=== PATIENT | male | born 1935 | race Caucasian/White ===

== ENCOUNTER 2019-07-18 02:14 | Emergency (ER) | payer OTHER, MEDICARE, MEDICAID, SELFPAY ==
[2019-07-18 02:23] VITALS: BP 103/70; PULSE 75; RESP 18; O2SAT 95; BMI 27.1
--- NOTE | 2019-07-18 02:58 | ED_ITS ---
Entered by Lavern Mina, acting as scribe for Aniya Sellers Myah Jul 18, 2019 02:14 HPI - Back Pain/Injury General: Chief Complaint: Back Pain/Injury Stated Complaint: BACK PAIN Time Seen by Provider: 07/18/19 02:59 Source: patient Mode of arrival: EMS Limitations: no limitations History of Present Illness: HPI Narrative: 84 yo m came to the er by [facility] for back pain. Onset was tonight. Pt states that he has pain that goes down into his legs and has pain in his lower back. MD elicited complaint: back pain Pertinent past history: prior back pain Onset (ago): day(s) (tonight) Timing: constant Severity: mild Similar Symptoms Previously: Yes Quality: other (pain) Location: thoracic spine Radiation: left upper leg, right upper leg, left leg below the knee and right leg below the knee Exacerbating factors: none Relieving factors: none Associated symptoms: Reports no associated symptoms Work related injury: No Review of Systems General: Reports: other (negative unless marked) PFSH ED PFSH: Statuses (acute, chronic, etc) shown below reflect problem list status as previously entered and may not be historically accurate Social History Smoking and tobacco status: former smoker Quit status (tobacco): has quit using tobacco Year quit tobacco: 1970 Alcohol intake: former Lives independently: Yes Housing: Apartment Current occupational status: disabled Current gender identity: Male Physical Exam Const: COMMON NORMALS: no apparent distress, oriented x3, no limitations, healthy appearing and well nourished EXAM LIMITATIONS: no altered mental status GENERAL APPEARANCE: cooperative, well kempt and well developed ORIENTATION/CONSCIOUSNESS: Yes awake HENMT: COMMON NORMALS: normocephalic, head/scalp atraumatic, hearing grossly normal bilaterally, external ears normal, EAC's normal, external nose normal and moist oral mucous membranes HEAD & SCALP: normal to inspection, normocephalic and atraumatic FACE & SINUS: normal facial exam and face symmetric NOSE: external nose normal and nares normal EXTERNAL EAR: Yes external ears normal EXTERNAL AUDITORY CANAL: EAC's normal MOUTH: oral and palatal mucosa normal and tongue normal Eye: COMMON NORMALS: PERRL, EOMs intact bilaterally, conjunctivae normal and no scleral icterus GENERAL EYE: normal appearance of both eyes and normal light reflex CONJUNCTIVA: Yes conjunctivae normal SCLERA: sclerae normal CORNEA: Yes corneas normal PUPIL: Yes PERRL DIRECT OPHTHALMOSCOPY: Yes normal light reflex Neck/C-Spine: COMMON NORMALS: full ROM, no lymphadenopathy, supple, no meningeal signs and no JVD GENERAL: Yes normal visual inspection and Yes trachea midline CERVICAL SPINE: Yes cervical ROM normal Chest: COMMONS NORMALS: inspection of chest normal and palpation of chest normal Resp: COMMON NORMALS: normal respiratory effort, no retractions, no use of accessory muscles and clear to auscultation bilaterally EFFORT & INSPECTION: Yes able to speak in complete sentences AUSCULTATION: clear to auscultation bilaterally Cardio: COMMON NORMALS: no JVD, regular rate, regular rhythm, S1 normal heart sound, S2 normal heart sound, no gallops, no clicks, no murmurs and no rub JUGULAR VENOUS DISTENTION: no JVD RATE: regular rate RHYTHM: regular rhythm HEART SOUNDS: S1 normal and S2 normal GI: COMMON NORMALS: soft to palpation, non-tender, no hepatosplenomegaly and no masses INSPECTION: Yes normal to inspection PALPATION: Yes soft and Yes no hepatosplenomegaly : COMMON NORMALS: Yes no CVA tenderness BLADDER/KIDNEY EXAM: Yes no CVA tenderness Back/Pelvis: COMMON NORMALS: no CVA tenderness, thoracic and lumbar spine normal to inspection, no thoracic nor lumbar tenderness and thoraco-lumbar ROM normal Extremity: COMMON NORMALS: normal to inspection, full ROM, normal capillary refill, no joint enlargement, no clubbing, cyanosis or edema and no calf tenderness Neuro: COMMON NORMALS: oriented x3, CN's II-XII intact bilaterally, moves all extremities, no focal motor deficits and no sensory deficits noted MENINGEAL SIGNS: Yes no meningeal signs Psych: COMMON NORMALS: mental status grossly normal, thought process normal, cooperative, affect normal, speech normal and activity/motor behavior normal APPEARANCE: Yes well kempt SPEECH: Yes normal speech THOUGHT PROCESS: normal thought process Skin: COMMON NORMALS: no rashes or lesions noted, skin turgor normal, no jaundice, no petechiae and no mottling GENERAL SKIN EXAM: no rashes or lesions noted and turgor normal Course Vital Signs: Vital signs: Vital Signs Temperature 98.4 F 07/18/19 03:09 Pulse Rate 65 07/18/19 05:01 Respiratory Rate 20 H 07/18/19 05:01 Blood Pressure 134/99 07/18/19 05:01 Pulse Oximetry 91 07/18/19 05:01 MDM - Back Pain/Injury MDM Narrative: Medical decision making narrative: Patient had complaints of flank pain and the concern of kidney stone as well as AAA was present but there is no acute findings. His back shows severe degenerative disease but no acute findings. The patient is very angry he is not getting more pain medication. I believe his back exam and description of pain justify the pain medication given but I have informed him that all future pain medication must come from his regular doctor. He states that his regular doctor will give him this medication long-term so I have suggested he find a specialist or a pain center that will help him with his symptoms. Patient states he understands this and will follow- up as directed return if needed. Lab Data: Labs: Lab Results 07/18/19 07/18/19 07/18/19 Range/Units 03:18 03:18 03:27 WBC 6.9 (4.0-10.0) 10^3/ uL RBC 4.63 (4.1-5.3) 10^6/u L Hgb 13.9 (11.7-16.6) g/dL Hct 42.4 (42.0-52.0) % MCV 91.6 (80-94) fL MCH 30.0 (28.0-34.0) pg MCHC 32.8 (30.0-36.0) g/dL RDW 12.4 (12.1-15.1) % Plt Count 186 (130-400) 10^3/c mm MPV 11.5 H (7.4-10.4) fL Neut % (Auto) 40.7 % Lymph % (Auto) 36.5 % Boyle % (Auto) 12.8 % Eos % (Auto) 8.7 % Baso % (Auto) 1.2 % Neut # (Auto) 2.8 (1.8-7.7) 10^3/u L Lymph # (Auto) 2.5 (0.8-4.8) 10^3/u L Boyle # (Auto) 0.9 (0.2-0.9) 10^3/u L Eos # (Auto) 0.6 (0.0-0.8) 10^3/u L Baso # (Auto) 0.1 (0.0-0.1) 10^3/u L Nucleated RBC % (a uto) 0 % Nucleated RBCs # 0.0 /100WBC Sodium 140 (136-145) mmol/L Potassium 3.5 (3.5-5.1) mmol/L Chloride 99 (98-107) mmol/L Carbon Dioxide 30 H (22-29) mmol/L Anion Gap 14.5 (5-19) BUN 8 (8-23) mg/dL Creatinine 0.7 (0.7-1.2) mg/dL Glucose 123 H (74-106) mg/dL Calcium 9.5 (8.5-10.5) mg/dL Total Bilirubin 0.6 (0.15-1.2) mg/dL AST 23 (0-40) U/L ALT 20 (0-41) U/L Alkaline Phosphata se 59 (40-130) IU/L Total Protein 7.3 (6.6-8.7) g/dL Albumin 3.8 (3.5-5.2) g/dL Globulin 3.5 (1.3-4.6) g/dL Urine Color Dark yellow (Yellow) Urine Appearance Clear (CLEAR) Urine pH 5 (5-7) Ur Specific Gravit y 1.030 (1.005-1.030) Urine Protein Neg (Negative) Urine Glucose (UA) Norm (Normal) Urine Ketones 1+ H (Negative) Urine Occult Blood Neg (Negative) Urine Nitrate Negative (Negative) Urine Bilirubin Neg (NEGATIVE) Urine Urobilinogen 1 H (Negative) mg/dL Ur Leukocyte Barbara ase Negative (Negative) Urine RBC None (0-2) /hpf Urine WBC None (0-5) /hpf Ur Squamous Epith Cells 10-15 H (0-5) Urine Bacteria Trace (NONE) Urine Mucus 3+ Imaging Data^: Other CT: Radiologist's impression: [address] [address] [address] Scan Report Signed Patient: Rafal Rockwell #: [id number] : 5Acct#:[id number] Age/Sex: 84 / MADM Date: 07/18/19 Loc: ERRoom/Bed: Attending Dr: Ordering Provider/Ordering MD: Aniya Sellers DO Date of Service: 07/18/19 Procedure(s): CT lumbar spine wo con* [id number] Accession Number(s): [id number] Report Number: [id number] PROCEDURE INFORMATION: Exam: CT Lumbar Spine Without Contrast Exam date and time: 07/18/2019 3:10 AM Age: 84 years old Clinical indication: Low back pain TECHNIQUE: Imaging protocol: Computed tomography images of the lumbar spine without contrast. Total DLP: 2538.343 mGy-cm Radiation optimization: All CT scans at this facility use at least one of these dose optimization techniques: automated exposure control; mA and/or kV adjustment per patient size (includes targeted exams where dose is matched to clinical indication); or iterative reconstruction. COMPARISON: MRI Lumbar Spine w/o [id number] 04/25/2019 4:51 PM FINDINGS: Vertebrae: Alignment is normal. Vertebral body height is maintained. There is no acute fracture. Severe bilateral lower lumbar facet spondylosis. Discs/Spinal canal/Neural foramina: There is moderate multilevel lumbar degenerative disc disease. Moderate multifactorial spinal stenosis at L2-L3 and L3-L4. Other bones/joints: Visible portions of the ribs are intact. Intraperitoneal space: The visible portion of the pelvis and sacrum is intact. Vasculature: There is moderate aortic atherosclerotic disease. There is no aortic aneurysm. Soft tissues: Paraspinal soft tissues are unremarkable. CT/CT lumbar spine wo con* [id number] IMPRESSION: 1. No acute findings. 2. Moderate to severe lower lumbar degenerative disease with multifactorial spinal stenosis at L2-L3 and L3-L4. Radiation Dose CTDIVOL = (mGy): DLP = 2538.343 (mGy-cm) Dictated By:Domingo Rodrigues MD Signed By:Domingo Rodrigues MDSigned Date/Time:07/18/19437 DD/ 6 CT Abd/Pel: Radiologist's impression: [address] [address] [address] Scan Report Signed Patient: Rafal Rockwell #: [id number] : [id number]#:[id number] Age/Sex: 84 / MADM Date: 07/18/19 Loc: ERRoom/Bed: Attending Dr: Ordering Provider/Ordering MD: Aniya Sellers DO Date of Service: 07/18/19 Procedure(s): CT kidney stone [id number] Accession Number(s): [id number] Report Number: [id number] PROCEDURE INFORMATION: Exam: CT Abdomen And Pelvis Without Contrast Exam date and time: 07/18/2019 3:10 AM Age: 84 years old Clinical indication: Abdominal pain; Flank; Other: Bilat; Additional info: Flank/abdominal pain TECHNIQUE: Imaging protocol: Computed tomography of the abdomen and pelvis without contrast. Total DLP: 1826.82 mGy-cm Radiation optimization: All CT scans at this facility use at least one of these dose optimization techniques: automated exposure control; mA and/or kV adjustment per patient size (includes targeted exams where dose is matched to clinical indication); or iterative reconstruction. COMPARISON: CT abdomen pelvis w con* [id number] 01/14/2016 4:56 PM FINDINGS: Lungs: There is a calcified granuloma in the right lower lobe. There is mild bronchial wall thickening and mucus plugging in the right lower lobe. Mediastinum: There is a moderate size sliding-type hiatal hernia. Liver: The liver is normal. Gallbladder and bile ducts: The gallbladder is normal. There is no biliary dilation. Pancreas: The pancreas is unremarkable. Spleen: The spleen is unremarkable. Adrenals: The adrenal glands are unremarkable. Kidneys and ureters: The right kidney and ureter are unremarkable. 7.9 x 6.7 cm left renal cyst with a thin calcified septation. Bosniak class 2. No follow-up imaging is necessary. There is no hydronephrosis or stones on the left. Stomach and bowel: The stomach is unremarkable. The small bowel is nondilated. There is no sign of inflammation. There is mild distal descending and sigmoid colonic diverticulosis without evidence of diverticulitis. Appendix: The appendix is normal. Intraperitoneal space: There is no free air or significant intraperitoneal free fluid. Vasculature: There is mild aortic atherosclerotic disease. There is no aortic aneurysm. Lymph nodes: There is no lymphadenopathy in the retroperitoneum, mesentery, pelvis or inguinal regions. Bladder: The urinary bladder is unremarkable. Reproductive: The prostate and seminal vesicles are unremarkable. Bones/joints: Mild lumbar scoliosis. Moderate degenerative disease. Pelvis and hips are unremarkable. Soft tissues: There is a small fat containing ventral hernia. CT/CT kidney stone [id number] IMPRESSION: 1. No acute findings. 2. Incidental findings above. Radiation Dose CTDIVOL = (mGy): DLP = 1826.82 (mGy-cm) Dictated By:Domingo Rodrigues MD Signed By:Domingo Rodrigues MDSigned Date/Time:07/18/19434 DD/ 3 Discharge Plan Discharge Patient Disposition: Home, Self-Care Clinical Impression: Strain of lumbar region Qualifiers: Encounter type: initial encounter Qualified Code(s): S39.012A - Strain of muscle, fascia and tendon of lower back, initial encounter Condition: Stable Prescriptions: [place] 5-325 mg tablet 1 tab PO Q6H PRN (Reason: pain) 5 Days Qty: 20 RF: 0 No Action lovastatin 40 mg tablet 40 mg PO QDAY RF: 0 metoprolol tartrate 100 mg tablet 100 mg PO QDAY RF: 0 tamsulosin 0.4 mg capsule 0.4 mg PO QDAY RF: 0 nitroglycerin [Nitrostat] 0.4 mg tablet, sublingual 0.4 mg SUBLINGUAL Q5M PRNRF: 0 docusate sodium [Colace] 100 mg capsule 100 mg PO QDAY RF: 0 cetirizine 5 mg tablet 5 mg PO QDAY RF: 0 donepezil [Aricept] 5 mg tablet 5 mg PO QDAY RF: 0 Discharge Orders: Discharge Order (Routine); Ordered 07/18/19 Ordered By: Aniya Sellers Referrals: Yobany Santana MD [Physician] - 4-7 days Loretta Bingham DO [Physician] - 4-7 days Chelsea Lindsey FNP [Family Provider] - Discharge Diet: Usual diet Discharge Activity: Increase activity as tolerated Patient Instructions: Back Pain (ED) Activity Restrictions/Additional Instructions: Please return to the ER immediately for any of the signs or symptoms listed on your discharge instruction sheets, worsening/changing of your symptoms, you are not getting better as quickly as expected, or for ANY other cause or concerns. Be certain to follow-up with your doctor or establish with a new doctor as all future pain medication must come from them. Discharge Date/Time: 07/18/19 05:03 Coding Level of Care Code ED Awning Spreader for Chg Fwd Exam Problem Focused The documentation recorded by the Leopoldo mullins Stephanie Lyn, accurately reflects the service I personally performed and the decisions made by me, Aniya Sellers Jul 18, 2019 02:14
--- NOTE | 2019-07-18 03:05 | PC.NURSE ---
Introduced self to patient and initiated vital signs. Pt is A&O x 4 and agreeable. Pt states that the reason for the ER visit today is due to lower back pain which is radiating down both legs. Reassured patient of needs and will continue to monitor. Awaiting provider at bedside.
--- NOTE | 2019-07-18 03:08 | CTR_ITS ---
PROCEDURE INFORMATION: Exam: CT Abdomen And Pelvis Without Contrast Exam date and time: 07/18/2019 3:10 AM Age: 84 years old Clinical indication: Abdominal pain; Flank; Other: Bilat; Additional info: Flank/abdominal pain TECHNIQUE: Imaging protocol: Computed tomography of the abdomen and pelvis without contrast. Total DLP: 1826.82 mGy-cm Radiation optimization: All CT scans at this facility use at least one of these dose optimization techniques: automated exposure control; mA and/or kV adjustment per patient size (includes targeted exams where dose is matched to clinical indication); or iterative reconstruction. COMPARISON: CT abdomen pelvis w con* [id number] 01/14/2016 4:56 PM FINDINGS: Lungs: There is a calcified granuloma in the right lower lobe. There is mild bronchial wall thickening and mucus plugging in the right lower lobe. Mediastinum: There is a moderate size sliding-type hiatal hernia. Liver: The liver is normal. Gallbladder and bile ducts: The gallbladder is normal. There is no biliary dilation. Pancreas: The pancreas is unremarkable. Spleen: The spleen is unremarkable. Adrenals: The adrenal glands are unremarkable. Kidneys and ureters: The right kidney and ureter are unremarkable. 7.9 x 6.7 cm left renal cyst with a thin calcified septation. Bosniak class 2. No follow-up imaging is necessary. There is no hydronephrosis or stones on the left. Stomach and bowel: The stomach is unremarkable. The small bowel is nondilated. There is no sign of inflammation. There is mild distal descending and sigmoid colonic diverticulosis without evidence of diverticulitis. Appendix: The appendix is normal. Intraperitoneal space: There is no free air or significant intraperitoneal free fluid. Vasculature: There is mild aortic atherosclerotic disease. There is no aortic aneurysm. Lymph nodes: There is no lymphadenopathy in the retroperitoneum, mesentery, pelvis or inguinal regions. Bladder: The urinary bladder is unremarkable. Reproductive: The prostate and seminal vesicles are unremarkable. Bones/joints: Mild lumbar scoliosis. Moderate degenerative disease. Pelvis and hips are unremarkable. Soft tissues: There is a small fat containing ventral hernia. CT/CT kidney stone [id number] IMPRESSION: 1. No acute findings. 2. Incidental findings above. Radiation Dose CTDIVOL = (mGy): DLP = 1826.82 (mGy-cm)
--- NOTE | 2019-07-18 03:08 | CTR_ITS ---
PROCEDURE INFORMATION: Exam: CT Lumbar Spine Without Contrast Exam date and time: 07/18/2019 3:10 AM Age: 84 years old Clinical indication: Low back pain TECHNIQUE: Imaging protocol: Computed tomography images of the lumbar spine without contrast. Total DLP: 2538.343 mGy-cm Radiation optimization: All CT scans at this facility use at least one of these dose optimization techniques: automated exposure control; mA and/or kV adjustment per patient size (includes targeted exams where dose is matched to clinical indication); or iterative reconstruction. COMPARISON: MRI Lumbar Spine w/o [id number] 04/25/2019 4:51 PM FINDINGS: Vertebrae: Alignment is normal. Vertebral body height is maintained. There is no acute fracture. Severe bilateral lower lumbar facet spondylosis. Discs/Spinal canal/Neural foramina: There is moderate multilevel lumbar degenerative disc disease. Moderate multifactorial spinal stenosis at L2-L3 and L3-L4. Other bones/joints: Visible portions of the ribs are intact. Intraperitoneal space: The visible portion of the pelvis and sacrum is intact. Vasculature: There is moderate aortic atherosclerotic disease. There is no aortic aneurysm. Soft tissues: Paraspinal soft tissues are unremarkable. CT/CT lumbar spine wo con* [id number] IMPRESSION: 1. No acute findings. 2. Moderate to severe lower lumbar degenerative disease with multifactorial spinal stenosis at L2-L3 and L3-L4. Radiation Dose CTDIVOL = (mGy): DLP = 2538.343 (mGy-cm)
[2019-07-18 03:09] VITALS: BP 135/89; PULSE 78; RESP 18; TEMP 36.9; O2SAT 94
[2019-07-18 03:24] LABS: Basophils # 0.1 10^3/uL (0.0-0.1); Basophils % 1.2 %; Eosinophils # 0.6 10^3/uL (0.0-0.8); Eosinophils % 8.7 %; Hematocrit 42.4 % (42.0-52.0); Hemoglobin 13.9 g/dL (11.7-16.6); Lymphocytes # 2.5 10^3/uL (0.8-4.8); Lymphocytes % 36.5 %; Mean Corpuscular HGB Conc 32.8 g/dL (30.0-36.0); Mean Corpuscular Volume 91.6 fL (80-94); Mean Platelet Volume 11.5 fL (7.4-10.4); Monocytes # 0.9 10^3/uL (0.2-0.9); Monocytes % 12.8 %; Neutrophils # 2.8 10^3/uL (1.8-7.7); Neutrophils % 40.7 %; Nucleated Red Blood Cells % 0 %; Platelet Count 186 10^3/cmm (130-400); Red Blood Count 4.63 10^6/uL (4.1-5.3); Red Cell Distribution Width 12.4 % (12.1-15.1); White Blood Count 6.9 10^3/uL (4.0-10.0)
[2019-07-18 03:46] LABS: Alanine Aminotransferase 20 U/L (0-41); Albumin Level 3.8 g/dL (3.5-5.2); Alkaline Phosphatase 59 IU/L (40-130); Anion Gap 14.5 (5-19); Aspartate Amino Transferase 23 U/L (0-40); Blood Urea Nitrogen 8 mg/dL (8-23); Calcium 9.5 mg/dL (8.5-10.5); Carbon Dioxide 30 mmol/L (22-29); Chloride 99 mmol/L (98-107); Creatinine Clr Calc Pharmacy 80.5459; Globulin 3.5 g/dL (1.3-4.6); Glucose 123 mg/dL (74-106); Potassium 3.5 mmol/L (3.5-5.1); Sodium 140 mmol/L (136-145); Total Bilirubin 0.6 mg/dL (0.15-1.2); Total Protein 7.3 g/dL (6.6-8.7)
[2019-07-18 03:59] LABS: Bilirubin Urine Neg (NEGATIVE); Blood Urine Neg (Negative); Glucose Urine UA Norm (Normal); Ketones Urine 1+ (Negative); Leukocyte Esterase Urine Negative (Negative); Nitrate Urine Negative (Negative); Protein Urine Neg (Negative); Urine Appearance Clear (CLEAR); Urine Color Dark Yellow (Yellow); Urobilinogen Urine 1 mg/dL (Negative); pH Urine 5 (5-7)
[2019-07-18] MEDS: HYDROcodone-acetaminophen 5-325 mg Tablet 1 TAB PO (03:59)
[2019-07-18 04:01] LABS: Add Urine Culture? No; Bacteria Urine TRACE; Mucus Urine 3+
[2019-07-18 05:01] VITALS: BP 134/99; PULSE 65; RESP 20; O2SAT 91
--- NOTE | 2019-07-21 13:57 | DCPLANNER ---
cocktail lounge manager had message to schedule a follow up appointment for patient with Dr. Santana. cocktail lounge manager called [facility], spoke with Roxanna, gave clinic patients information. cocktail lounge manager was told that patients information would be printed and given to Liam for review. Clinic will call patient with appointment information. cocktail lounge manager will call for appointment information.
== END 2019-07-18 05:03 | disposition home or self-care (01) ==
PROVIDERS: Emergency Provider Emergency Medicine; Family Provider Nurse Practitioner Family
DX: S39.012A Strain of muscle, fascia and tendon of lower back, initial encounter (principal); Z87.891 Personal history of nicotine dependence; X58.XXXA Exposure to other specified factors, initial encounter
CPT/HCPCS: 36415; 72131; 74176; 80053; 81001; 85025; 99281; 99283

== ENCOUNTER → 2019-11-03 16:30 | Outpatient (BNVA) | payer MEDICARE, MEDICAID, SELFPAY | PROVIDERS: Family Provider Nurse Practitioner Family; Visit Provider Family Medicine | DX: F03.90 Unspecified dementia, unspecified severity, without behavioral disturbance, psychotic disturbance, mood disturbance, and anxiety (principal); E78.5 Hyperlipidemia, unspecified; I10 Essential (primary) hypertension; N40.0 Benign prostatic hyperplasia without lower urinary tract symptoms; J30.9 Allergic rhinitis, unspecified; M48.061 Spinal stenosis, lumbar region without neurogenic claudication; Z12.5 Encounter for screening for malignant neoplasm of prostate | CPT/HCPCS: 80053; 80061; 84443; 85025; G0103 ==

== ENCOUNTER → 2020-09-28 15:37 | Outpatient (BNVA) | payer MEDICARE, MEDICAID, SELFPAY | PROVIDERS: Family Provider Nurse Practitioner Family; Visit Provider Family Medicine | DX: F03.90 Unspecified dementia, unspecified severity, without behavioral disturbance, psychotic disturbance, mood disturbance, and anxiety (principal); E78.5 Hyperlipidemia, unspecified; N40.0 Benign prostatic hyperplasia without lower urinary tract symptoms; I10 Essential (primary) hypertension; K21.9 Gastro-esophageal reflux disease without esophagitis; E78.2 Mixed hyperlipidemia; Z68.28 Body mass index [BMI] 28.0-28.9, adult; F17.211 Nicotine dependence, cigarettes, in remission | CPT/HCPCS: 80053; 80061; 84443; 85025 ==

== ENCOUNTER → 2021-02-15 11:39 | Outpatient (BNVA) | payer MEDICARE, MEDICAID, SELFPAY | PROVIDERS: Family Provider Nurse Practitioner Family; Visit Provider Family Medicine | DX: F03.90 Unspecified dementia, unspecified severity, without behavioral disturbance, psychotic disturbance, mood disturbance, and anxiety (principal); I10 Essential (primary) hypertension; N40.0 Benign prostatic hyperplasia without lower urinary tract symptoms; E78.2 Mixed hyperlipidemia; E78.5 Hyperlipidemia, unspecified; J44.9 Chronic obstructive pulmonary disease, unspecified; M25.512 Pain in left shoulder | CPT/HCPCS: 80053; 80061; 84443; 85025; G0103 ==

== ENCOUNTER → 2021-11-16 13:12 | Outpatient (BNVA) | payer MEDICARE, MEDICAID, SELFPAY | PROVIDERS: Family Provider Nurse Practitioner Family; PCP Family Medicine; Visit Provider Family Medicine | DX: E78.5 Hyperlipidemia, unspecified (principal); I10 Essential (primary) hypertension; R73.09 Other abnormal glucose; Z12.5 Encounter for screening for malignant neoplasm of prostate; E78.2 Mixed hyperlipidemia; F03.90 Unspecified dementia, unspecified severity, without behavioral disturbance, psychotic disturbance, mood disturbance, and anxiety; K21.9 Gastro-esophageal reflux disease without esophagitis; F42.4 Excoriation (skin-picking) disorder | CPT/HCPCS: 80053; 80061; 83036; 85025; G0103 ==

== ENCOUNTER → 2022-07-27 17:01 | Outpatient (BNVA) | payer MEDICARE, MEDICAID, SELFPAY | PROVIDERS: Family Provider Nurse Practitioner Family; PCP Family Medicine; Visit Provider Family Medicine | DX: E11.9 Type 2 diabetes mellitus without complications (principal); E78.2 Mixed hyperlipidemia; F03.90 Unspecified dementia, unspecified severity, without behavioral disturbance, psychotic disturbance, mood disturbance, and anxiety; I10 Essential (primary) hypertension; K21.9 Gastro-esophageal reflux disease without esophagitis; N40.0 Benign prostatic hyperplasia without lower urinary tract symptoms; E78.5 Hyperlipidemia, unspecified; Z12.5 Encounter for screening for malignant neoplasm of prostate | CPT/HCPCS: 80053; 80061; 83036; 84443; 85025; G0103 ==

== ENCOUNTER → 2022-12-07 10:15 | Outpatient (BNVA) | payer MEDICARE, MEDICAID, SELFPAY | PROVIDERS: Family Provider Nurse Practitioner Family; PCP Family Medicine; Visit Provider Family Medicine | DX: F03.90 Unspecified dementia, unspecified severity, without behavioral disturbance, psychotic disturbance, mood disturbance, and anxiety (principal); E78.5 Hyperlipidemia, unspecified; I10 Essential (primary) hypertension; E11.9 Type 2 diabetes mellitus without complications; K21.9 Gastro-esophageal reflux disease without esophagitis | CPT/HCPCS: 80053; 80061; 83036; 84443 ==

== ENCOUNTER → 2023-01-08 12:21 | Outpatient (BNVA) | payer MEDICARE, MEDICAID, SELFPAY | PROVIDERS: Family Provider Nurse Practitioner Family; PCP Family Medicine; Visit Provider Family Medicine | DX: R82.998 Other abnormal findings in urine (principal) | CPT/HCPCS: 81000 ==

== ENCOUNTER → 2023-03-21 15:20 | Outpatient (BNVA) | payer MEDICARE, MEDICAID, SELFPAY | PROVIDERS: Family Provider Nurse Practitioner Family; PCP Family Medicine; Visit Provider Family Medicine | DX: E11.9 Type 2 diabetes mellitus without complications (principal); E78.5 Hyperlipidemia, unspecified; F03.90 Unspecified dementia, unspecified severity, without behavioral disturbance, psychotic disturbance, mood disturbance, and anxiety; G89.29 Other chronic pain; M54.9 Dorsalgia, unspecified; M54.50 Low back pain, unspecified; I10 Essential (primary) hypertension; N40.0 Benign prostatic hyperplasia without lower urinary tract symptoms | CPT/HCPCS: 80053; 80061; 83036; 84443; 85025 ==

== ENCOUNTER 2023-06-09 09:43 | Emergency (ER) | payer MEDICARE, MEDICAID, SELFPAY ==
[2023-06-09 09:43] VITALS: BP 172/89; PULSE 80; RESP 15; TEMP 36.7; O2SAT 94; BMI 21.7
--- NOTE | 2023-06-09 10:02 | XRR_ITS ---
PROCEDURE INFORMATION: Exam: XR Chest Exam date and time: 06/09/2023 10:10 AM Age: 88 years old Clinical indication: Dyspnea TECHNIQUE: Imaging protocol: Radiologic exam of the chest. Views: 1 view. COMPARISON: CR XR chest 1V [id number] 04/14/2017 11:04 PM FINDINGS: Lungs: The left upper lobe and right lung are clear No consolidation. Pleural spaces: Eventration left hemidiaphragm No pleural effusion. No pneumothorax. Heart/Mediastinum: Unremarkable. No cardiomegaly. Bones/joints: Unremarkable. XR/XR chest 1V portable [id number] IMPRESSION: 1. Eventration left hemidiaphragm 2. Otherwise No acute findings.
--- NOTE | 2023-06-09 10:02 | XRR_ITS ---
PROCEDURE INFORMATION: Exam: XR Abdomen Exam date and time: 06/09/2023 10:14 AM Age: 88 years old Clinical indication: Constipation TECHNIQUE: Imaging protocol: Radiologic exam of the abdomen. Views: Frontal supine view of the abdomen. 1 View. COMPARISON: CT kidney stone [id number] 07/18/2019 3:48 AM FINDINGS: Gastrointestinal tract: There is a moderate colonic fecal stasis in the hepatic flexure and proximal transverse colon. Scattered fecal stasis seen throughout the remainder of the colon. There is no bowel obstruction or fecal impaction present. No bowel dilation. The bowel gas pattern is otherwise nonspecific. Bones/joints: Severe osteopenia and osteoarthritis. There is lumbar spine levoscoliosis. XR/XR abdomen 1V* [id number] IMPRESSION: 1. Negative for acute GI abnormality. 2. Moderate colonic fecal stasis in the hepatic flexure and proximal transverse colon 3. Negative for bowel obstruction or fecal impaction. 4. Lumbar spine osteopenia, osteoarthritis, and levoscoliosis .
[2023-06-09 10:05] VITALS: PULSE 75; O2SAT 98
--- NOTE | 2023-06-09 10:05 | ED_ITS ---
HPI - Abdominal Pain 2 General: Chief Complaint: Abdominal Pain Stated Complaint: ABD PAIN Time Seen by Provider: 06/09/23 09:48 History of Present Illness: Patient presents to the ER by EMS with complaints of shortness of breath. Patient normally wears 2 L of oxygen at night. Upon arrival patient's oxygen saturation was about 95% on room air but he still complained of being short of breath. Patient was placed on 2 L and his sats jumped up to 9798%. Patient says he has been having bowel problems and been constipated for the last several days but has been taking home medicine and which has helped a little bit in that area. Otherwise patient has no complaints at this time. Review of Systems 2 General: Reports: 10 or more systems reviewed and unremarkable except in HPI and below PFSH ED 2 PFSH: Medical History (Updated 06/09/23 @ 11:25 by August Chang DO) Lumbar stenosis without neurogenic claudication Intervertebral disc disorder with radiculopathy of lumbosacral region BPH (benign prostatic hyperplasia) Dyslipidemia GERD (gastroesophageal reflux disease) Depression with anxiety COPD (chronic obstructive pulmonary disease) Alcoholism Decreased hearing of both ears ASHD (arteriosclerotic heart disease) Hypertension Surgical History History of cholecystectomy (~2012) Family History Other Cancer Social History Smoking and tobacco/nicotine status: former use of tobacco/nicotine Quit status (tobacco/nicotine): has quit using Year quit tobacco: 1970 Alcohol intake: former Substance/Drug Use: never Lives independently: Yes Housing: Apartment Current occupational status: disabled Do you think of yourself as: Straight/Heterosexual Current gender identity: Male Physical Exam 2 Const: COMMON NORMALS: no acute distress, average body habitus, patient oriented x3, no limitations, healthy appearing, alert and well nourished HENMT: COMMON NORMALS: normocephalic, atraumatic, hearing grossly normal bilaterally, external ears normal, Normal external nose present, moist oral mucous membranes and oropharynx normal HEAD & SCALP: normocephalic and atraumatic NOSE: Normal external nose present EXTERNAL EAR: Yes external ears normal Neck/C-Spine: COMMON NORMALS: no JVD Resp: COMMON NORMALS: normal respiratory effort, No retractions, No use of accessory muscles and clear to auscultation bilaterally AUSCULTATION: clear to auscultation bilaterally Cardio: COMMON NORMALS: no JVD, regular rate, regular rhythm, S1 normal heart sound present, S2 normal heart sound present, No gallops present (Cardio), No clicks present (Cardio), No murmurs present (Cardio) and No rub (Cardio) R ATE: regular rate RHYTHM: regular rhythm HEART SOUNDS: S1 normal heart sound present and S2 normal heart sound present GI: COMMON NORMALS: Normal to inspection, nondistended, normoactive bowel sounds present, Soft to palpation, non-tender, No hepatosplenomegaly present and no masses PALPATION: Yes Soft to palpation and Yes No hepatosplenomegaly present Neuro: COMMON NORMALS: patient oriented x3 SENSORIUM/ORIENTATION: Yes alert Course 2 Vital Signs: Vital signs: Vital Signs Temperature 98.1 F 06/09/23 09:43 Pulse Rate 75 06/09/23 10:05 Respiratory Rate 15 06/09/23 09:43 Blood Pressure 172/89 06/09/23 09:43 Pulse Oximetry 98 06/09/23 10:05 Oxygen Delivery Me thod Nasal Cannula 06/09/23 10:05 Oxygen Flow Rate 3 06/09/23 10:05 MDM - Abdominal Pain Medical Decision Making She had lab work drawn it was essentially unremarkable as well as abdominal x- ray which was positive for moderate constipation. These results was described to the patient. Patient can wear his home oxygen at 2 L per nasal cannula at all times if patient desires. Patient should continue his bowel prep regimen. Differential Diagnosis Likely constipation; Unlikely abdominal pain, acute appendicitis, calculus of kidney, diverticulitis, endometriosis, gastroenteritis, pancreatitis or small bowel obstruction Medical Records I reviewed the patient's medical records. Lab Data I reviewed the patient's lab results. 06/09/23 10:25 06/09/23 10:25 Labs/Radiology: Radiology Impressions Abdomen X-Ray 06/09/23 10:02 IMPRESSION: 1. Negative for acute GI abnormality. 2. Moderate colonic fecal stasis in the hepatic flexure and proximal transverse colon 3. Negative for bowel obstruction or fecal impaction. 4. Lumbar spine osteopenia, osteoarthritis, and levoscoliosis . Chest X-Ray 06/09/23 10:02 IMPRESSION: 1. Eventration left hemidiaphragm 2. Otherwise No acute findings. Laboratory Results WBC 11.52 10^3/uL (3.29-11.43) H 06/09/23 10:25 RBC 4.01 10^6/uL (3.85-5.65) 06/09/23 10:25 Hgb 11.40 g/dL (11.27-16.99) 06/09/23 10:25 Hct 36.8 % (37-53) L 06/09/23 10:25 MCV 91.8 fl (82-101) 06/09/23 10:25 MCH 28.4 pg (27-33) 06/09/23 10:25 MCHC 31.0 g/dL (30-55) 06/09/23 10:25 RDW 13.5 % (12.1-15.1) 06/09/23 10:25 Plt Count 171 10^3/cmm (157-399) 06/09/23 10:25 MPV 11.5 fL (7.4-10.4) H 06/09/23 10:25 Neut % (Auto) 75.9 % 06/09/23 10:25 Lymph % (Auto) 12.2 % 06/09/23 10:25 [place] % (Auto) 8.3 % 06/09/23 10:25 Eos % (Auto) 2.7 % 06/09/23 10:25 Baso % (Auto) 0.6 % 06/09/23 10:25 Neut # (Auto) 8.74 10^3/uL (1.8-7.7) H 06/09/23 10:25 Lymph # (Auto) 1.4 10^3/uL (0.8-4.8) 06/09/23 10:25 [place] # (Auto) 1.0 10^3/uL (0.2-0.9) H 06/09/23 10:25 Eos # (Auto) 0.3 10^3/uL (0.0-0.8) 06/09/23 10:25 Baso # (Auto) 0.1 10^3/uL (0.0-0.1) 06/09/23 10:25 Nucleated RBC % (auto) 0 % 06/09/23 10:25 Nucleated RBCs # 0.0 /100WBC 06/09/23 10:25 Sodium 136 mmol/L (136-145) 06/09/23 10:25 Potassium 4.3 mmol/L (3.5-5.1) 06/09/23 10:25 Chloride 98 mmol/L (98-107) 06/09/23 10:25 Carbon Dioxide 33 mmol/L (22-29) H 06/09/23 10:25 Anion Gap 9.3 (5-19) 06/09/23 10:25 BUN 14 mg/dL (8-23) 06/09/23 10:25 Creatinine 0.7 mg/dL (0.7-1.2) 06/09/23 10:25 GFR Calculation Not Reportable 06/09/23 10:25 Glucose 130 mg/dL (65-115) H 06/09/23 10:25 Calculated Osmolality 284 mOsm/kg (285-295) L 06/09/23 10:25 Calcium 9.1 mg/dL (8.5-10.5) 06/09/23 10:25 Total Bilirubin 0.4 mg/dL (0.15-1.2) 06/09/23 10:25 AST 12 U/L (0-40) 06/09/23 10:25 ALT 9 U/L (0-41) 06/09/23 10:25 Alkaline Phosphatase 63 U/L (40-130) 06/09/23 10:25 Total Protein 7.1 g/dL (6.6-8.7) 06/09/23 10:25 Albumin 3.4 g/dL (3.5-5.2) L 06/09/23 10:25 Globulin 3.7 g/dL (1.3-4.6) 06/09/23 10:25 Lipase 36 U/L (13-60) 06/09/23 10:25 All radiology interpretation(s) finalized by discharge Discharge Plan Discharge Patient Disposition: Home Clinical Impression: Constipation, SOB (shortness of breath) Condition: Stable Prescriptions: No Action nitroglycerin [Nitrostat] 0.4 mg tablet, sublingual 0.4 mg SUBLINGUAL Q5M PRN (Reason: Chest Pain) (DME) blood-glucose meter Misc See Rx Instructions .Route Qty: 1 0RF Rx Instructions: daily (DME) blood sugar diagnostic Strip See Rx Instructions .Route Qty: 30 3RF Rx Instructions: check blood sugar one time daily (DME) lancets 32 gauge misc See Rx Instructions .Route Qty: 100 1RF Rx Instructions: check blood sugar one time daily acetaminophen-codeine 300-60 mg tablet 1 tab PO Q8H PRN (Reason: pain) Qty: 90 0RF donepezil 10 mg tablet 10 mg PO DAILY lovastatin 40 mg tablet 40 mg PO DAILY metoprolol succinate 100 mg tablet extended release 24 hr 100 mg PO DAILY famotidine 20 mg tablet 20 mg PO BID tamsulosin 0.4 mg capsule 0.4 mg PO DAILY mirtazapine 30 mg tablet 30 mg PO BEDTIME diclofenac sodium 75 mg tablet,delayed release (DR/EC) 75 mg PO BID Rx Instructions: TAKE ONE TABLET BY MOUTH TWICE DAILY furosemide 20 mg tablet 20 mg PO DAILY metformin 500 mg tablet extended release 24 hr 500 mg PO DAILY memantine 10 mg tablet 10 mg PO QAM duloxetine 30 mg capsule,delayed release(DR/EC) 30 mg PO DAILY Discharge Orders: Discharge ED (Routine); Ordered 06/09/23 Ordered By: August Chang Referrals: Aminah Dial MD [Primary Care Provider] - 1 week Patient Instructions: Constipation (ED), Shortness of Breath (ED) Activity Restrictions/Additional Instructions: Please continue your bowel regimen for your constipation. Please feel free to wear your oxygen at 2 L/min per nasal cannula at all times. Please follow-up with your family practice physician in the next 7 to 10 days for further evaluation and treatment. Coding Level of Care Code ED Gmat Tutor for Ayo Rae
[2023-06-09 10:31] LABS: Basophils # 0.1 10^3/uL (0.0-0.1); Basophils % 0.6 %; Eosinophils # 0.3 10^3/uL (0.0-0.8); Eosinophils % 2.7 %; Hematocrit 36.8 % (37-53); Lymphocytes # 1.4 10^3/uL (0.8-4.8); Lymphocytes % 12.2 %; Mean Corpuscular Hemoglobin 28.4 pg (27-33); Mean Corpuscular Volume 91.8 fl (82-101); Mean Platelet Volume 11.5 fL (7.4-10.4); Monocytes % 8.3 %; Neutrophils # 8.74 10^3/uL (1.8-7.7); Neutrophils % 75.9 %; Nucleated Red Blood Cells % 0 %; Platelet Count 171 10^3/cmm (157-399); Red Blood Count 4.01 10^6/uL (3.85-5.65); Red Cell Distribution Width 13.5 % (12.1-15.1); White Blood Count 11.52 10^3/uL (3.29-11.43)
[2023-06-09 10:56] LABS: Alanine Aminotransferase 9 U/L (0-41); Albumin Level 3.4 g/dL (3.5-5.2); Alkaline Phosphatase 63 U/L (40-130); Anion Gap 9.3 (5-19); Aspartate Amino Transferase 12 U/L (0-40); Blood Urea Nitrogen 14 mg/dL (8-23); Calcium 9.1 mg/dL (8.5-10.5); Carbon Dioxide 33 mmol/L (22-29); Chloride 98 mmol/L (98-107); Globulin 3.7 g/dL (1.3-4.6); Glucose 130 mg/dL (65-115); Lipase 36 U/L (13-60); Osmolality Calculated 284 mOsm/kg (285-295); Potassium 4.3 mmol/L (3.5-5.1); Sodium 136 mmol/L (136-145); Total Bilirubin 0.4 mg/dL (0.15-1.2); Total Protein 7.1 g/dL (6.6-8.7)
[2023-06-09 11:32] VITALS: PULSE 75; O2SAT 98
== END 2023-06-09 11:51 | disposition home or self-care (01) ==
PROVIDERS: Emergency Provider Emergency Medicine; PCP Family Medicine
DX: R06.02 Shortness of breath (principal); K59.00 Constipation, unspecified; Z79.84 Long term (current) use of oral hypoglycemic drugs; Z87.891 Personal history of nicotine dependence; E78.5 Hyperlipidemia, unspecified; J44.9 Chronic obstructive pulmonary disease, unspecified; I10 Essential (primary) hypertension
CPT/HCPCS: 36415; 71045; 74018; 80053; 83690; 85025; 99284

== ENCOUNTER 2023-09-09 17:16 | Inpatient (IN) | payer MEDICARE, MEDICAID, SELFPAY ==
[2023-09-09 17:18] VITALS: BP 166/71; PULSE 74; TEMP 36.9; O2SAT 96; BMI 21.7
--- NOTE | 2023-09-09 18:16 | XRR_ITS ---
PROCEDURE INFORMATION: Exam: XR Chest Exam date and time: 09/09/2023 6:34 PM Age: 88 years old Clinical indication: Patient HX: SOB; Dyspnea, low back pain TECHNIQUE: Imaging protocol: Radiologic exam of the chest. Views: 1 view. COMPARISON: CR XR chest 1V portable [id number] 06/09/2023 10:10 AM FINDINGS: Lungs: Bilateral apical capping. Right apical scarring. Pleural spaces: Moderate to large left pleural effusion with adjacent atelectasis/infiltrate. Heart/Mediastinum: Cannot assess cardiac size due to silhouetting of the left heart border. Bones/joints: No acute bony abnormality. XR/XR chest 1V portable [id number] IMPRESSION: Moderate to large left pleural effusion with adjacent atelectasis/infiltrate.
--- NOTE | 2023-09-09 18:21 | ECG_ITS ---
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 Measurements Intervals [place] Rate: 76 P: 0 [place]: 0 QRS: -30 QRSD: 138 T: -13 QT: 425 QTc: 478 Interpretive Statements ATRIAL FIBRILLATION BORDERLINE LEFT AXIS DEVIATION [QRS AXIS < -20] RIGHT BUNDLE BRANCH BLOCK [120+ ms QRS DURATION, UPRIGHT V1, 40+ ms S IN I/aVL/V4/V5/V6] Compared to ECG 04/14/2017 23:44:00 Right bundle-branch block now present Sinus rhythm no longer present Electronically Signed On 09-09-2023 23:51:44 CDT by Faisal Carroll M.D. [id number]
[2023-09-09 18:36] LABS: ABG PCO2 50.2 mmHg (35-45); ABG PH Result 7.46 (7.35-7.45); Arterial Blood Gas Hematocrit 35.3 % (42-52); Base Excess ABG 9.9 mmol/L (-2.0-2.0); Blood Gas Allen Test Pos; Blood Gas Operator Identificat MONRO; Blood Gas Sample Site Brachial, right; Blood Gas Sample Type Arterial; Carboxyhemoglobin 0.6 %THgb (0.4-20.1); HCO3 ABG 35.3 mmol/L (22-26); Methemoglobin 0.4 % (0.4-1.5); Oxygen Device NC; PO2 ABG 84.9 mmHg (80.0-100.0); PO2 FiO2 Ratio Arterial Blood 0; Total Hemoglobin 11.5 g/dL (14-18)
[2023-09-09 19:23] VITALS: BP 166/71; PULSE 75; O2SAT 91
[2023-09-09 19:31] LABS: Basophils # 0.1 10^3/uL (0.0-0.1); Basophils % 0.7 %; Eosinophils # 0.1 10^3/uL (0.0-0.8); Eosinophils % 1.2 %; Hematocrit 34.7 % (37-53); Lymphocytes # 1.6 10^3/uL (0.8-4.8); Lymphocytes % 15.2 %; Mean Corpuscular HGB Conc 31.7 g/dL (30-55); Mean Corpuscular Hemoglobin 28.5 pg (27-33); Mean Corpuscular Volume 89.9 fl (82-101); Neutrophils # 7.78 10^3/uL (1.8-7.7); Neutrophils % 73.3 %; Nucleated Red Blood Cells % 0 %; Platelet Count 288 10^3/cmm (157-399); Red Blood Count 3.86 10^6/uL (3.85-5.65); Red Cell Distribution Width 13.9 % (12.1-15.1)
[2023-09-09 19:47] LABS: Troponin(5th) Baseline 28 ng/L (0-15)
[2023-09-09 19:49] LABS: INR 1.19 (0.8-1.2)
[2023-09-09 20:03] LABS: NT Pro B Type Natriuretic Pept 3880 pg/mL (0-450); Procalcitonin 0.09 ng/mL (0-0.5)
[2023-09-09 20:15] LABS: Alanine Aminotransferase 7 U/L (0-41); Albumin Level 2.7 g/dL (3.5-5.2); Alkaline Phosphatase 71 U/L (40-130); Anion Gap 11.5 (5-19); Aspartate Amino Transferase 11 U/L (0-40); Blood Urea Nitrogen 14 mg/dL (8-23); Calcium 8.6 mg/dL (8.5-10.5); Carbon Dioxide 33 mmol/L (22-29); Chloride 101 mmol/L (98-107); Creatinine Clr Calc Pharmacy 60.6586; Globulin 3.8 g/dL (1.3-4.6); Glucose 107 mg/dL (65-115); Osmolality Calculated 295 mOsm/kg (285-295); Potassium 3.5 mmol/L (3.5-5.1); Sodium 142 mmol/L (136-145); Total Bilirubin 0.4 mg/dL (0.15-1.2); Total Protein 6.5 g/dL (6.6-8.7)
--- NOTE | 2023-09-09 20:21 | ECG_ITS ---
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 Measurements Intervals [place] Rate: 75 P: 49 [place]: 154 QRS: -30 QRSD: 130 T: -9 QT: 394 QTc: 441 Interpretive Statements SINUS RHYTHM BORDERLINE LEFT AXIS DEVIATION [QRS AXIS < -20] RIGHT BUNDLE BRANCH BLOCK [120+ ms QRS DURATION, UPRIGHT V1, 40+ ms S IN I/aVL/V4/V5/V6] Compared to ECG 09/09/2023 18:29:26 Atrial fibrillation no longer present Electronically Signed On 09-09-2023 23:57:33 CDT by Faisal Carroll M.D. [id number]
[2023-09-09 20:29] LABS: Add Urine Microscopic? YES; Bacteria Urine 2+ /hpf; Bilirubin Urine Neg (Negative); Blood Urine 3+ (Negative); Glucose Urine UA Norm (Normal); Ketones Urine Negative (Negative); Leukocyte Esterase Urine Negative (Negative); Mucus Urine 1+ /hpf; Nitrate Urine Negative (Negative); Protein Urine 3+ (Negative); Specific Gravity, Urine 1.025 (1.005-1.030); Squamous Epithelial Cell Urine 0-4 /hpf (0-5); Urine Appearance Hazy (CLEAR); Urine Color Yellow (Yellow); Urobilinogen Urine Neg (Negative); pH Urine 5 (5-7)
[2023-09-09 20:30] LABS: Amorphous Sediment Urine 1+ /hpf
[2023-09-09 20:31] LABS: Add Urine Culture? Yes
[2023-09-09 21:00] VITALS: O2SAT 100
--- NOTE | 2023-09-09 21:10 | W.ED.BACK ---
HPI - Back Pain/Injury General: Chief Complaint: Back Pain/Injury Stated Complaint: LOW BACK PAIN Time Seen by Provider: 09/09/23 17:24 History of Present Illness: 88-year-old male presents emergency department via EMS personnel. Patient is an extremely poor historian given his history of dementia. He is accompanied by his family members that are providing the patient's chief complaint and past medical history. The family member states that the patient is on chronic supplemental 2 L oxygen has a history of COPD and CHF as well as dementia. He states that the patient has increased fall risk and was recently had his hydrocodone discontinued by his primary care provider. The family members state the patient is no longer able to care for himself and are requesting admission to the hospital and placement for snf. Patient does appear to have increased work of breathing on presentation to the emergency department. He does have multiple sores at various stages of healing all over his body. Review of Systems General: Reports: ROS unobtainable due to medical condition and ROS unobtainable due to mental status [facility] ED PFSH: Medical History (Updated 09/09/23 @ 21:39 by Alex Morataya MD) Lumbar stenosis without neurogenic claudication Intervertebral disc disorder with radiculopathy of lumbosacral region BPH (benign prostatic hyperplasia) Dyslipidemia GERD (gastroesophageal reflux disease) Depression with anxiety COPD (chronic obstructive pulmonary disease) Alcoholism Decreased hearing of both ears ASHD (arteriosclerotic heart disease) Hypertension Surgical History History of cholecystectomy (~2012) Family History Other Cancer Social History Smoking and tobacco/nicotine status: former use of tobacco/nicotine Quit status (tobacco/nicotine): has quit using Year quit tobacco: 1970 Alcohol intake: former Substance/Drug Use: never Lives independently: Yes Housing: Apartment Current occupational status: disabled Do you think of yourself as: Straight/Heterosexual Current gender identity: Male Physical Exam Narrative: EXAM NARRATIVE: Constitutional: Ill-appearing, frail, unable to participate in clinical exam or provide his past medical history given his longstanding dementia. Vital signs as documented. Alert to person Head, eyes, ears, nose, mouth, throat: Normocephalic, atraumatic. Pupils-equal, round, reactive to light. No scleral icterus. Normal-appearing external ears. Normal appearing nasal turbinates, no drainage. Mucous membranes are dry, lips are dry Neck: Supple, trachea is midline, no lymphadenopathy, no jugular venous distension or carotid bruits. Carotid upstrokes are brisk bilaterally. Lungs: Rhonchi noted to the left decreased bilaterally left greater than right. Symmetrical rise and fall of chest, obvious signs of increased work of breathing at present. On supplemental oxygen 2 L nasal cannula Cardiac: Irregularly irregular rhythm, positive S1, S2. No murmurs, rubs or gallops that I can appreciate Abdomen: Soft, non-tender to palpation, normal active bowel sounds to all quadrants. No palpable masses, no organomegaly and abdominal bruits. Extremities: 2+ pulses in the upper extremities that are equal bilaterally, 2+ pulses in the lower extremities that are equal bilaterally. Non-edematous. Moves all extremities well, sensation to all extremities are noted. Skin: Warm, dry, multiple sores to the entire body at various stages of healing. Skin tear to the right forearm Course Vital Signs: Vital signs: Vital Signs Temperature 98.5 F 09/09/23 17:18 Pulse Rate 78 09/09/23 21:13 Blood Pressure 141/81 09/09/23 21:13 Pulse Oximetry 99 09/09/23 21:13 Oxygen Delivery Me thod Nasal Cannula 09/09/23 21:13 Oxygen Flow Rate 3 09/09/23 21:13 MDM - Back Pain/Injury Medical Decision Making Physical exam completed and documented, I will obtain a CBC, CMP, cardiac enzymes and BNP. Chest x-ray, blood cultures lactic acid and procalcitonin as well as serial EKGs. Medical Records I reviewed the patient's medical records. Labs I reviewed the patient's lab results. 09/09/23 19:10 09/09/23 19:10 Radiology Impressions Chest X-Ray 09/09/23 18:16 IMPRESSION: Moderate to large left pleural effusion with adjacent atelectasis/infiltrate. Laboratory Results WBC 10.60 10^3/uL (3.29-11.43) 09/09/23 19:10 RBC 3.86 10^6/uL (3.85-5.65) 09/09/23 19:10 Hgb 11.00 g/dL (11.27-16.99) L 09/09/23 19:10 Hct 34.7 % (37-53) L 09/09/23 19:10 MCV 89.9 fl (82-101) 09/09/23 19:10 MCH 28.5 pg (27-33) 09/09/23 19:10 MCHC 31.7 g/dL (30-55) 09/09/23 19:10 RDW 13.9 % (12.1-15.1) 09/09/23 19:10 Plt Count 288 10^3/cmm (157-399) 09/09/23 19:10 MPV 12.0 fL (7.4-10.4) H 09/09/23 19:10 Neut % (Auto) 73.3 % 09/09/23 19:10 Lymph % (Auto) 15.2 % 09/09/23 19:10 [place] % (Auto) 9.0 % 09/09/23 19:10 Eos % (Auto) 1.2 % 09/09/23 19:10 Baso % (Auto) 0.7 % 09/09/23 19:10 Neut # (Auto) 7.78 10^3/uL (1.8-7.7) H 09/09/23 19:10 Lymph # (Auto) 1.6 10^3/uL (0.8-4.8) 09/09/23 19:10 [place] # (Auto) 1.0 10^3/uL (0.2-0.9) H 09/09/23 19:10 Eos # (Auto) 0.1 10^3/uL (0.0-0.8) 09/09/23 19:10 Baso # (Auto) 0.1 10^3/uL (0.0-0.1) 09/09/23 19:10 Nucleated RBC % (auto) 0 % 09/09/23 19:10 Nucleated RBCs # 0.0 /100WBC 09/09/23 19:10 PT 15.40 SECONDS (12.1-14.9) H 09/09/23 19:10 INR 1.19 (0.8-1.2) 09/09/23 19:10 Specimen Type Arterial 09/09/23 18:23 Sample Site Brachial, right 09/09/23 18:23 ABG pH 7.46 (7.35-7.45) H 09/09/23 18:23 ABG pCO2 50.2 mmHg (35-45) H 09/09/23 18:23 ABG pO2 84.9 mmHg (80.0-100.0) 09/09/23 18:23 ABG PO2/FiO2 Ratio 0 09/09/23 18:23 ABG HCO3 35.3 mmol/L (22-26) H 09/09/23 18:23 ABG Base Excess 9.9 mmol/L (-2.0-2.0) H 09/09/23 18:23 Kike Test Pos 09/09/23 18:23 Hematocrit 35.3 % (42-52) L 09/09/23 18:23 Hgb O2 Saturation 96.0 % (95-100) 09/09/23 18:23 Carboxyhemoglobin 0.6 %THgb (0.4-20.1) 09/09/23 18:23 Methemoglobin 0.4 % (0.4-1.5) 09/09/23 18:23 Total Hemoglobin 11.5 g/dL (14-18) L 09/09/23 18:23 O2 Delivery Device Nc 09/09/23 18:23 O2 Liters/Min 2.0 % 09/09/23 18:23 FiO2 28.0 % 09/09/23 18:23 Upholstery Restorer ID [place] 09/09/23 18:23 Sodium 142 mmol/L (136-145) 09/09/23 19:10 Potassium 3.5 mmol/L (3.5-5.1) 09/09/23 19:10 Chloride 101 mmol/L (98-107) 09/09/23 19:10 Carbon Dioxide 33 mmol/L (22-29) H 09/09/23 19:10 Anion Gap 11.5 (5-19) 09/09/23 19:10 BUN 14 mg/dL (8-23) 09/09/23 19:10 Creatinine 0.9 mg/dL (0.7-1.2) 09/09/23 19:10 GFR Calculation Not Reportable 09/09/23 19:10 Glucose 107 mg/dL (65-115) 09/09/23 19:10 Calculated Osmolality 295 mOsm/kg (285-295) 09/09/23 19:10 Lactic Acid 1.0 mmol/L (0.5-2.2) 09/09/23 19:10 Calcium 8.6 mg/dL (8.5-10.5) 09/09/23 19:10 Total Bilirubin 0.4 mg/dL (0.15-1.2) 09/09/23 19:10 AST 11 U/L (0-40) 09/09/23 19:10 ALT 7 U/L (0-41) 09/09/23 19:10 Alkaline Phosphatase 71 U/L (40-130) 09/09/23 19:10 Troponin T Baseline 28 ng/L (0-15) H 09/09/23 19:10 NT-Pro-B Natriuret Pep 3880 pg/mL (0-450) H 09/09/23 19:10 Total Protein 6.5 g/dL (6.6-8.7) L 09/09/23 19:10 Albumin 2.7 g/dL (3.5-5.2) L 09/09/23 19:10 Globulin 3.8 g/dL (1.3-4.6) 09/09/23 19:10 Procalcitonin 0.09 ng/mL (0-0.5) 09/09/23 19:10 Urine Color Yellow (Yellow) 09/09/23 20:07 Urine Appearance Hazy (CLEAR) A 09/09/23 20:07 Urine pH 5 (5-7) 09/09/23 20:07 Ur Specific [place] 1.025 (1.005-1.030) 09/09/23 20:07 Urine Protein 3+ (Negative) H 09/09/23 20:07 Urine Glucose (UA) Norm (Normal) 09/09/23 20:07 Urine Ketones Negative (Negative) 09/09/23 20:07 Urine Blood 3+ (Negative) H 09/09/23 20:07 Urine Nitrate Negative (Negative) 09/09/23 20:07 Urine Bilirubin Neg (Negative) 09/09/23 20:07 Urine Urobilinogen Neg mg/dL (Negative) 09/09/23 20:07 Ur Leukocyte Esterase Negative (Negative) 09/09/23 20:07 Urine RBC 5-10 /hpf (0-2) H 09/09/23 20:07 Urine WBC 5-10 /hpf (0-5) H 09/09/23 20:07 Ur Squamous Epith Cells 0-4 /hpf (0-5) H 09/09/23 20:07 Amorphous Sediment 1+ /hpf 09/09/23 20:07 Urine Bacteria 2+ /hpf (NONE) H 09/09/23 20:07 Hyaline Casts 5-10 /lpf H 09/09/23 20:07 Urine Mucus 1+ /hpf 09/09/23 20:07 Urine Yeast Trace /hpf 09/09/23 20:07 All radiology interpretation(s) finalized by discharge EKG Data EKG 1: Interpretation: Twelve-lead EKG obtained at 1829 reviewed at 1833 demonstrates atrial fibrillation with a ventricular rate of 76 bpm, QRS duration 138 QT 425 QTc [address] elevation or depression at present to demonstrate acute ischemia or infarction. EKG 2: Interpretation: Twelve-lead EKG obtained at 2017 reviewed 2019 demonstrates sinus rhythm with underlying bundle branch block. Ventricular rate 75 bpm, CO interval 154, QRS duration 130, QT 394, QTc [address] elevation or depression to demonstrate acute ischemia or infarction at present. Discharge Plan Discharge Patient Disposition: Admitted As Inpatient Admit Provider: Alex Morataya Clinical Impression: Pleural effusion on left, Acute dyspnea, Adult failure to thrive Congestive heart failure Qualifiers: Heart failure type: unspecified Heart failure chronicity: acute Qualified Code(s): I50.9 - Heart failure, unspecified Condition: Stable Coding Level of Care Code ED English As A Second Language Instructor for Ayo Rae
[2023-09-09 21:13] VITALS: BP 141/81; PULSE 78; O2SAT 99
--- NOTE | 2023-09-09 21:29 | P.HP_ITS ---
Providers/Chief Complaint 2 Admitting Physician: Alex Morataya MD Primary Care Provider: Aminah Dial MD Chief Complaint: LOW BACK PAIN History of Present Illness Rafal Rockwell is a 88 year old male with history of diastolic dysfunction, ex-smoker, BPH, scoliosis, diabetes, constipation, dementia, presenting from home with chief complaint of worsening shortness of orthopnea and PND. Patient at baseline requires 2 L of oxygen, family stating that they had to increase oxygen requirement up to 3 to 4 L, they have not noticed any fever patient has not vomited, he has been complaining of recurrent chest discomfort on taking deep breaths, no history of coronary disease or SC. No history of cancer. Secondary to knee arthritis he does not walk on his own stays in the bed most of the time. Sedentary lifestyle, poor p.o. intake, family stating that his bowel movement fluctuates between diarrhea and constipation. Family is requesting long-term longterm placement they prefer [facility] because they want to follow-up with Dr. Cohen, Patient is very hard of hearing He has been getting some eyedrops for blepharitis At the time of evaluation he is laying supine, on 2 L Review of Systems 2 Const: Denies: fever(s) or chills Eyes: Denies: change in vision ENMT: Denies: throat pain Card: Reports: chest pain and swelling of feet/ankles Resp: Reports: dyspnea GI: Denies: abdominal pain Medications/Allergies Home Medications Medication Instructions Recorded Confirmed Last Taken Type nitroglycerin 0.4 mg sublingual 0.4 mg sublingual Q5M PRN Chest 07/17/19 06/09/23 Unknown History tablet (Nitrostat) Pain blood sugar diagnostic #30 ea 11/23/21 06/09/23 Unknown Rx blood-glucose meter #1 ea 11/23/21 06/09/23 Unknown Rx lancets 32 gauge #100 ea 11/23/21 06/09/23 Unknown Rx acetaminophen 300 mg-codeine 60 mg 1 tab PO Q8H PRN pain #90 tabs 05/17/23 06/09/23 Unknown Rx tablet diclofenac sodium 75 mg 75 mg PO BID 06/09/23 06/09/23 06/08/23 History tablet,delayed release duloxetine 30 mg capsule,delayed 30 mg PO DAILY 06/09/23 06/09/23 06/08/23 History release famotidine 20 mg tablet 20 mg PO BID 06/09/23 06/09/23 06/08/23 History furosemide 20 mg tablet 20 mg PO DAILY 06/09/23 06/09/23 06/08/23 History lovastatin 40 mg tablet 40 mg PO DAILY 06/09/23 06/09/23 06/08/23 History mirtazapine 30 mg tablet 30 mg PO BEDTIME 06/09/23 06/09/23 06/08/23 History tamsulosin 0.4 mg capsule 0.4 mg PO DAILY 06/09/23 06/09/23 06/08/23 History donepezil 10 mg tablet 10 mg PO DAILY #30 tabs 07/23/23 Unknown Rx memantine 10 mg tablet 10 mg PO QAM #30 tabs 07/23/23 Unknown Rx metformin 500 mg tablet,extended 500 mg PO DAILY #30 tabs 07/23/23 Unknown Rx release 24 hr metoprolol succinate 100 mg 100 mg PO DAILY #30 tabs 07/23/23 Unknown Rx tablet,extended release 24 hr Allergies Allergy/AdvReac Type Severity Reaction Status Date / Time amoxicillin [From Augmentin] Allergy Breathing Verified 09/09/23 17:26 Difficulty clavulanic acid Allergy Breathing Verified 09/09/23 17:26 [From Augmentin] Difficulty PFSH Acute 2 PFSH: Medical History (Updated 09/09/23 @ 21:39 by Alex Morataya MD) Lumbar stenosis without neurogenic claudication Intervertebral disc disorder with radiculopathy of lumbosacral region BPH (benign prostatic hyperplasia) Dyslipidemia GERD (gastroesophageal reflux disease) Depression with anxiety COPD (chronic obstructive pulmonary disease) Alcoholism Decreased hearing of both ears ASHD (arteriosclerotic heart disease) Hypertension Surgical History History of cholecystectomy (~2012) Family History Other Cancer Social History Smoking and tobacco/nicotine status: former use of tobacco/nicotine Quit status (tobacco/nicotine): has quit using Year quit tobacco: 1970 Alcohol intake: former Substance/Drug Use: never Lives independently: Yes Housing: Apartment Current occupational status: disabled Do you think of yourself as: Straight/Heterosexual Current gender identity: Male Vitals/I&O/Wt Last Vital Signs Temp 98.5 F 09/09/23 17:18 Pulse 78 09/09/23 21:13 BP 141/81 09/09/23 21:13 Pulse Ox 99 09/09/23 21:13 O2 Del Method Nasal Cannula 09/09/23 21:13 O2 Flow Rate 3 09/09/23 21:13 Weight last 48 hrs Weight 72.575 kg Physical Exam 2 Narrative: Awake alert Oriented to himself Answers simple questions Currently on 2 L Diminished breath sounds bilaterally No active wheezing Active crackles Currently on 2 L Hemodynamic stable Family at the bedside Low extremity 1+ edema Nonfocal neuroexam Data 09/09/23 19:10 09/09/23 19:10 Micro: Microbiology 09/09/23 19:17 Blood Culture - Preliminary Blood SPECIMEN COLLECTED 09/09/23 19:10 Blood Culture - Preliminary Blood SPECIMEN COLLECTED A&P Assessment and plan (1) Failure to thrive: (2) Depression with anxiety: (3) Hypertension: Qualifiers: Hypertension type: essential hypertension Qualified Code(s): I10 - Essential (primary) hypertension (4) Congestive heart failure: Qualifiers: Heart failure chronicity: acute Heart failure type: unspecified Qualified Code(s): I50.9 - Heart failure, unspecified (5) Diabetes: (6) Adult failure to thrive: (7) GERD (gastroesophageal reflux disease): Qualifiers: Esophagitis presence: without esophagitis Qualified Code(s): K21.9 - Gastro-esophageal reflux disease without esophagitis (8) Constipation: Qualifiers: Constipation type: unspecified constipation type Qualified Code(s): K 59.00 - Constipation, unspecified (9) BPH (benign prostatic hyperplasia): Qualifiers: Lower urinary tract symptom presence: unspecified whether lower urinary tract symptoms present Qualified Code(s): N40.0 - Benign prostatic hyperplasia without lower urinary tract symptoms (10) Dementia: Qualifiers: Dementia type: unspecified type Dementia behavioral disturbance: w ithout behavioral disturbance Qualified Code(s): F03.90 - Unspecified dementia without behavioral disturbance (11) COPD (chronic obstructive pulmonary disease): (12) Pleural effusion on left: (13) Acute dyspnea: Plan Acute diastolic CHF exacerbation Left-sided pleural effusion Will request thoracentesis for symptomatic management No signs of pneumonia Afebrile no leukocytosis procalcitonin unremarkable Acute on chronic hypoxia At baseline uses 2 L Currently his oxygen requirement is fluctuating 2 to 3 L no active chest pain Failure to thrive Patient has poor p.o. intake Losing weight as per the family Sedentary lifestyle Check D-dimer Family requesting longterm placement for [facility] DNR/DNI Patient has dementia without acute worsening Admit to [facility] I will place Leon catheter Will give him IV Lasix Continue n.p.o. after midnight for thoracentesis in the morning Patient is not a good historian most information has been taken from the family, Previous records reviewed patient had echo done in 2020 which showed preserved action fraction and diastolic function Attestations 2 Medical Necessity Statement*: More than 2 midnights anticipated Diagnoses Failure to thrive Depression with anxiety F41.8 Essential hypertension I10 Hypertension type: essential hypertension Congestive heart failure I50.9 Heart failure chronicity: acute Heart failure type: unspecified Diabetes E11.9 Adult failure to thrive R62.7 Gastroesophageal reflux disease without esophagitis K21.9 Esophagitis presence: without esophagitis Constipation K59.00 Constipation type: unspecified constipation type Benign prostatic hyperplasia, unspecified whether lower urinary tract symptoms present N40.0 Lower urinary tract symptom presence: unspecified whether lower urinary tract symptoms present Dementia without behavioral disturbance, unspecified dementia type F03.90 Dementia type: unspecified type Dementia behavioral disturbance: without behavioral disturbance COPD (chronic obstructive pulmonary disease) J44.9 Pleural effusion on left J90 Acute dyspnea R06.00
[2023-09-09 21:53] LABS: Troponin 5 2HR 29.24 ng/L (0-15); Troponin 5 2HR Delta 1.24 ABS# (0-10)
[2023-09-09 22:14] VITALS: BP 172/92; PULSE 72; RESP 18; TEMP 37; O2SAT 98
[2023-09-09 22:19] LABS: D Dimer 3.77 ug/mLFEU (0-0.59)
[2023-09-09 22:41] LABS: Vitamin B12 339 pg/mL (232-1245)
[2023-09-09 23:02] VITALS: RESP 16
[2023-09-09] MEDS: morphine IR 15 mg Tablet PO (23:02)
[2023-09-10] VITALS (9 sets, daily range): BP systolic 140–160; BP diastolic 69–97; PULSE 55–111; RESP 16–21; TEMP 36.4–36.7; O2SAT 90–95
[2023-09-10 04:18] LABS: Basophils # 0.1 10^3/uL (0.0-0.1); Basophils % 0.7 %; Eosinophils # 0.2 10^3/uL (0.0-0.8); Eosinophils % 1.5 %; Hematocrit 35.1 % (37-53); Lymphocytes # 2.7 10^3/uL (0.8-4.8); Mean Corpuscular HGB Conc 31.3 g/dL (30-55); Mean Corpuscular Hemoglobin 28.4 pg (27-33); Mean Corpuscular Volume 90.5 fl (82-101); Mean Platelet Volume 12.3 fL (7.4-10.4); Monocytes # 1.2 10^3/uL (0.2-0.9); Monocytes % 11.1 %; Neutrophils # 6.94 10^3/uL (1.8-7.7); Neutrophils % 62.3 %; Nucleated Red Blood Cells % 0 %; Platelet Count 278 10^3/cmm (157-399); Red Blood Count 3.88 10^6/uL (3.85-5.65); Red Cell Distribution Width 14.1 % (12.1-15.1); White Blood Count 11.16 10^3/uL (3.29-11.43)
[2023-09-10 04:31] LABS: Anion Gap 10.6 (5-19); Blood Urea Nitrogen 13 mg/dL (8-23); Calcium 8.4 mg/dL (8.5-10.5); Carbon Dioxide 33 mmol/L (22-29); Chloride 100 mmol/L (98-107); Creatinine Clr Calc Pharmacy 68.7158; Glucose 96 mg/dL (65-115); Lactate Dehydrogenase 274 U/L (135-225); Magnesium 1.9 mg/dL (1.7-2.3); Osmolality Calculated 290 mOsm/kg (285-295); Potassium 3.6 mmol/L (3.5-5.1); Sodium 140 mmol/L (136-145)
--- NOTE | 2023-09-10 08:41 | PC.PHAR ---
pt unable to verify medications-pts family jas [phone] verified pts medications-ext shows memantine 10mg qam filled 08/16/23 30ds jas states it must not have gotten delivered called [facility] states was delivered on 08/17/23 with the donepezil 10mg daily filled 08/16/23 30d/s
--- NOTE | 2023-09-10 08:42 | P.PN_ITS ---
Subjective 2 Subjective: Patient awake alert oriented to self time and place at this time. Unable to tell me who the president is. On nasal cannula however cannot tell me how much nasal cannula he takes at home. From records it is indicated that he is on 2 L at home. At this time when seen patient is on 2 L. He is resting comfortably in bed. Very poor historian. Unable to tell me why he is in the hospital. Denies chest pain, shortness of breath. Vitals/I&O/Wt Last Vital Signs Temp 97.7 F 09/10/23 07:41 Pulse 78 09/10/23 07:41 Resp 18 09/10/23 07:41 BP 144/80 09/10/23 07:41 Pulse Ox 92 09/10/23 07:41 O2 Del Method Nasal Cannula 09/10/23 07:41 O2 Flow Rate 3 09/09/23 21:13 09/09/23 09/10/23 09/10/23 22:59 06:59 14:59 Intake Total 120 / 120 Output Total 200 / 200 Balance 120 / 120 -200 / -80 Weight last 48 hrs Weight 73.737 kg Weight 73.89 kg Weight 72.575 kg Physical Exam 2 Narrative: Awake alert Oriented to himself, knows he is in the hospital and the year is 2023. Unable to tell me who the president is. Answers simple questions Currently on 2 L Diminished breath sounds bilaterally No active wheezing Mainly clear to auscultation with mild crackles on left side. Currently on 2 L Hemodynamic stable Low extremity 1+ edema Nonfocal neuroexam Urinary Catheter Management: Elon: Cath Placed During This Visit: yes Reason for Continuing Indwelling Catheter: Other Urinary Catheter Date of Insertion: 09/09/23 Urinary Catheter Time of Insertion: 22:12 Data 09/10/23 02:59 09/10/23 02:59 Micro: Microbiology 09/09/23 19:17 Blood Culture - Preliminary Blood SPECIMEN COLLECTED 09/09/23 19:10 Blood Culture - Preliminary Blood SPECIMEN COLLECTED A&P Assessment and plan (1) Failure to thrive: (2) Depression with anxiety: (3) Hypertension: Qualifiers: Hypertension type: essential hypertension Qualified Code(s): I10 - Essential (primary) hypertension (4) Congestive heart failure: Qualifiers: Heart failure chronicity: acute Heart failure type: unspecified Qualified Code(s): I50.9 - Heart failure, unspecified (5) Diabetes: (6) Adult failure to thrive: (7) GERD (gastroesophageal reflux disease): Qualifiers: Esophagitis presence: without esophagitis Qualified Code(s): K21.9 - Gastro-esophageal reflux disease without esophagitis (8) Constipation: Qualifiers: Constipation type: unspecified constipation type Qualified Code(s): K 59.00 - Constipation, unspecified (9) BPH (benign prostatic hyperplasia): Qualifiers: Lower urinary tract symptom presence: unspecified whether lower urinary tract symptoms present Qualified Code(s): N40.0 - Benign prostatic hyperplasia without lower urinary tract symptoms (10) Dementia: Qualifiers: Dementia type: unspecified type Dementia behavioral disturbance: w ithout behavioral disturbance Qualified Code(s): F03.90 - Unspecified dementia without behavioral disturbance (11) COPD (chronic obstructive pulmonary disease): (12) Pleural effusion on left: (13) Acute dyspnea: Plan Acute diastolic CHF exacerbation Left-sided pleural effusion Will request thoracentesis for symptomatic management No signs of pneumonia Afebrile no leukocytosis procalcitonin unremarkable Acute on chronic hypoxia At baseline uses 2 L Currently his oxygen requirement is fluctuating 2 to 3 L no active chest pain Failure to thrive Patient has poor p.o. intake Losing weight as per the family Sedentary lifestyle Check D-dimer Family requesting long term placement for [facility] DNR/DNI Patient has dementia without acute worsening Admit to [facility] I will place Leon catheter Will give him IV Lasix Continue n.p.o. after midnight for thoracentesis in the morning Patient is not a good historian most information has been taken from the family, Previous records reviewed patient had echo done in 2020 which showed preserved action fraction and diastolic function Continue above plan for today. Case management alerted for placement PT OT ordered. Attestations 2 Medical Necessity Statement*: More than 2 midnights anticipated Coding Level of Care Code 21484 Diagnoses Failure to thrive Depression with anxiety F41.8 Essential hypertension I10 Hypertension type: essential hypertension Congestive heart failure I50.9 Heart failure chronicity: acute Heart failure type: unspecified Diabetes E11.9 Adult failure to thrive R62.7 Gastroesophageal reflux disease without esophagitis K21.9 Esophagitis presence: without esophagitis Constipation K59.00 Constipation type: unspecified constipation type Benign prostatic hyperplasia, unspecified whether lower urinary tract symptoms present N40.0 Lower urinary tract symptom presence: unspecified whether lower urinary tract symptoms present Dementia without behavioral disturbance, unspecified dementia type F03.90 Dementia type: unspecified type Dementia behavioral disturbance: without behavioral disturbance COPD (chronic obstructive pulmonary disease) J44.9 Pleural effusion on left J90 Acute dyspnea R06.00
[2023-09-10] MEDS: ciprofloxacin 0.3% Op Soln 2.5 mL Btl 1 DROP EYE-LEFT ×3 (09:13→20:29)
[2023-09-10] MEDS: tamsulosin 0.4 mg Capsule 0.400000000000000022 MG PO (09:14)
[2023-09-10] MEDS: donepezil 5 MG Tablet 10 MG PO (09:14)
[2023-09-10] MEDS: sennosides-docusate Tablet 2 TAB PO ×2 (09:14→17:19)
[2023-09-10] MEDS: FUROsemide 10 mg/mL SDV 10mL 40 MG IVP ×2 (09:14→20:27)
[2023-09-10] MEDS: morphine IR 15 mg Tablet PO ×2 (09:19→18:38)
--- NOTE | 2023-09-10 09:30 | USCV_ITS ---
Rafal Rockwell Age: 88 Gender: M : 1935 Exam Date: 09/10/2023 09:47 Ordering Phys: Alex Morataya MD Technologist: Exam Location: [facility] [place] Indication: CHF BP: 134 / 74 HR: 52 Rhythm: Sinus Technical Quality: Adequate MEASUREMENTS (Male / Female) Normal Values 2D ECHO LV Diastolic Diameter PLAX 4.5 cm 4.2 - 5.9 / 3.9 - 5.3 cm IVS Diastolic Thickness 1.4 cm 0.6 - 1.0 / 0.6 - 0.9 cm IVS Systolic Thickness 1.8 cm LVPW Diastolic Thickness 1.1 cm 0.6 - 1.0 / 0.6 - 0.9 cm LVPW Systolic Thickness 1.8 cm LVOT Diameter 2.0 cm LV Ejection Fraction 2D Teich 64.6 % LV Ejection Fraction MOD 2C 59.4 % LV Ejection Fraction 2C AL 61.8 % LA Diameter 3.3 cm RA Systolic Volume 4C AL 43.5 ml RA Systolic Volume 4C MOD 39.9 ml IVC Diameter 1.4 cm M-MODE LA Ao Ratio MM 1.1 AV Cusp Separation MM 2.1 cm DOPPLER AV Peak Velocity 136.0 cm/s LVOT Peak Velocity 83.0 cm/s AV Area Cont Eq vti 2.9 cm squared AV Area Cont Eq pk 1.9 cm squared MV Peak Velocity 92.0 cm/s MV Area PHT 3.5 cm squared Mitral E to A Ratio 0.8 TR Peak Velocity 302.5 cm/s TR Peak Gradient 36.6 mmHg TR Mean Velocity 143.0 cm/s TR Mean Gradient 11.9 mmHg TR Velocity Time Integral 62.0 cm Right Atrial Pressure 3.0 mmHg Pulmonary Artery Systolic Pressu 39.6 mmHg PV Peak Velocity 136.0 cm/s FINDINGS Left Ventricle Normal left ventricular size and systolic function, EF 62%.mild left ventricular hypertrophy. No regional wall motion abnormalities. Grade I/IV diastolic dysfunction (abnormal relaxation filling pattern), normal to mildly elevated filling pressures. Right Ventricle The right ventricle is normal in size and function. Right Atrium The right atrium is normal in size. Left Atrium Mildly increased left atrial size. Mitral Valve Mild mitral valve regurgitation. Aortic Valve Thickened aortic valve. Tricuspid Valve Trace to mild tricuspid valve regurgitation. Pulmonic Valve Structurally normal pulmonic valve without significant stenosis. There is no pulmonic regurgitation. Pericardium No pericardial effusion. Aorta Normal ascending aorta dimension. IVC The inferior vena cava appears normal. CONCLUSIONS Normal left ventricular size and systolic function, EF 62%.mild left ventricular hypertrophy. No regional wall motion abnormalities. Grade I/IV diastolic dysfunction (abnormal relaxation filling pattern), normal to mildly elevated filling pressures. Mildly increased left atrial size. Mild mitral valve regurgitation. Trace to mild tricuspid valve regurgitation. Estimated pulmonary artery peak systolic pressure 40 mmHg There is no pericardial effusion. There are no intracardiac masses. Comparison with the previous study is difficult because of the difference in the technical quality. Dr Reina Masters MD [facility] (Electronically Signed) Final Date: 10 September 2023 14:18 S
[2023-09-10] MEDS: enoxaparin 40 mg/0.4 mL Syringe SUBCUT (20:28)
[2023-09-10] MEDS: acetaminophen 500 mg Tablet PO (21:03)
[2023-09-11] VITALS (10 sets, daily range): BP systolic 117–173; BP diastolic 54–76; PULSE 60–106; RESP 16–22; TEMP 36.2–36.8; O2SAT 91–96
[2023-09-11] MEDS: memantine 5 mg tablet 10 MG PO (05:14)
[2023-09-11 05:16] LABS: Basophils # 0.1 10^3/uL (0.0-0.1); Eosinophils # 0.7 10^3/uL (0.0-0.8); Eosinophils % 5.4 %; Hematocrit 35.4 % (37-53); Lymphocytes % 22.6 %; Mean Corpuscular HGB Conc 31.4 g/dL (30-55); Mean Corpuscular Hemoglobin 28.7 pg (27-33); Mean Corpuscular Volume 91.5 fl (82-101); Mean Platelet Volume 11.8 fL (7.4-10.4); Monocytes # 1.7 10^3/uL (0.2-0.9); Monocytes % 12.9 %; Neutrophils # 7.53 10^3/uL (1.8-7.7); Neutrophils % 57.6 %; Nucleated Red Blood Cells % 0 %; Platelet Count 266 10^3/cmm (157-399); Red Blood Count 3.87 10^6/uL (3.85-5.65); Red Cell Distribution Width 14.1 % (12.1-15.1); White Blood Count 13.07 10^3/uL (3.29-11.43)
[2023-09-11 05:32] LABS: INR 1.18 (0.8-1.2)
[2023-09-11 05:51] LABS: Anion Gap 13.1 (5-19); Blood Urea Nitrogen 13 mg/dL (8-23); Calcium 8.3 mg/dL (8.5-10.5); Carbon Dioxide 35 mmol/L (22-29); Chloride 96 mmol/L (98-107); Creatinine Clr Calc Pharmacy 55.7966; Glucose 86 mg/dL (65-115); Magnesium 1.7 mg/dL (1.7-2.3); Osmolality Calculated 291 mOsm/kg (285-295); Potassium 3.1 mmol/L (3.5-5.1); Sodium 141 mmol/L (136-145)
[2023-09-11] MEDS: tamsulosin 0.4 mg Capsule 0.400000000000000022 MG PO (08:19)
[2023-09-11] MEDS: ciprofloxacin 0.3% Op Soln 2.5 mL Btl 1 DROP EYE-LEFT ×3 (08:19→22:11)
[2023-09-11] MEDS: metoprolol succinate ER (24 HR) 100 mg Tablet PO (08:20)
[2023-09-11] MEDS: donepezil 5 MG Tablet 10 MG PO (08:20)
[2023-09-11] MEDS: FUROsemide 10 mg/mL SDV 10mL 40 MG IVP ×2 (08:20→20:50)
[2023-09-11] MEDS: sennosides-docusate Tablet 2 TAB PO ×2 (08:20→17:09)
[2023-09-11] MEDS: potassium chloride oral liq 20 mEq/15 mL UDC 40 MEQ PO (08:37)
[2023-09-11] MEDS: morphine IR 15 mg Tablet PO ×2 (10:53→17:09)
--- NOTE | 2023-09-11 12:54 | P.PN_ITS ---
Subjective 2 Subjective: Seen this morning. Laying in bed. Awake alert oriented. Does have periods of confusion. History of underlying dementia Unable to cooperate for thoracentesis. Patient keeps moving in bed. Ultrasound was done. Radiologist suspects central mass as opposed to a true effusion. Will discuss with family regarding further care. Patient is saturating 92% on room air at this time. Vitals/I&O/Wt Last Vital Signs Temp 97.5 F L 09/11/23 12:31 Pulse 92 09/11/23 12:31 Resp 19 H 09/11/23 12:31 BP 173/54 09/11/23 12:31 Pulse Ox 94 09/11/23 12:31 O2 Del Method Nasal Cannula 09/11/23 12:31 O2 Flow Rate 1 09/10/23 19:50 09/10/23 09/11/23 09/11/23 22:59 06:59 14:59 Intake Total 1080 / 1080 20 / 20 Output Total 1000 / 2300 Balance 1080 / -220 -1000 / -1220 20 / 20 Weight last 48 hrs Weight 76.742 kg Weight 73.737 kg Weight 73.89 kg Weight 72.575 kg Physical Exam 2 Narrative: Awake alert Oriented to himself, says he is in the intermediate today. Answers simple questions Currently on 2 L Diminished breath sounds bilaterally No active wheezing Mainly clear to auscultation bilaterally no wheezes no rhonchi. No crackles appreciated. Currently on 2 L Hemodynamic stable Low extremity 1+ edema Nonfocal neuroexam Urinary Catheter Management: Leon: Cath Placed During This Visit: yes Reason for Continuing Indwelling Catheter: Other Urinary Catheter Date of Insertion: 09/09/23 Urinary Catheter Time of Insertion: 22:12 Data 09/11/23 04:45 09/11/23 04:45 Micro: Microbiology 09/09/23 20:07 Urine Culture - Final Urine,Clean Catch 09/09/23 19:17 Blood Culture - Preliminary Blood NEGATIVE TO DATE 09/09/23 19:10 Blood Culture - Preliminary Blood NEGATIVE TO DATE A&P Assessment and plan (1) Failure to thrive: (2) Depression with anxiety: (3) Hypertension: Qualifiers: Hypertension type: essential hypertension Qualified Code(s): I10 - Essential (primary) hypertension (4) Congestive heart failure: Qualifiers: Heart failure chronicity: acute Heart failure type: unspecified Qualified Code(s): I50.9 - Heart failure, unspecified (5) Diabetes: (6) Adult failure to thrive: (7) GERD (gastroesophageal reflux disease): Qualifiers: Esophagitis presence: without esophagitis Qualified Code(s): K21.9 - Gastro-esophageal reflux disease without esophagitis (8) Constipation: Qualifiers: Constipation type: unspecified constipation type Qualified Code(s): K 59.00 - Constipation, unspecified (9) BPH (benign prostatic hyperplasia): Qualifiers: Lower urinary tract symptom presence: unspecified whether lower urinary tract symptoms present Qualified Code(s): N40.0 - Benign prostatic hyperplasia without lower urinary tract symptoms (10) Dementia: Qualifiers: Dementia type: unspecified type Dementia behavioral disturbance: w ithout behavioral disturbance Qualified Code(s): F03.90 - Unspecified dementia without behavioral disturbance (11) COPD (chronic obstructive pulmonary disease): (12) Pleural effusion on left: (13) Acute dyspnea: Plan Acute diastolic CHF exacerbation Left-sided pleural effusion Will request thoracentesis for symptomatic management?unable to perform as not enough fluid to drain. Patient also not cooperative. No signs of pneumonia Afebrile no leukocytosis procalcitonin unremarkable Patient on room air. Leukocytosis WBC 13,000. Question of aspiration versus stress-induced leukocytosis? Will check chest x-ray today. Acute on chronic hypoxia At baseline uses 2 L On room air. Failure to thrive Patient has poor p.o. intake Losing weight as per the family Sedentary lifestyle Check D-dimer Family requesting intermediate placement for [facility] DNR/DNI Patient has dementia without acute worsening Patient is not a good historian most information has been taken from the family, Previous records reviewed patient had echo done in 2020 which showed preserved action fraction and diastolic function Case management alerted for placement PT OT ordered. Attestations 2 Medical Necessity Statement*: More than 2 midnights anticipated Diagnoses Failure to thrive Depression with anxiety F41.8 Essential hypertension I10 Hypertension type: essential hypertension Congestive heart failure I50.9 Heart failure chronicity: acute Heart failure type: unspecified Diabetes E11.9 Adult failure to thrive R62.7 Gastroesophageal reflux disease without esophagitis K21.9 Esophagitis presence: without esophagitis Constipation K59.00 Constipation type: unspecified constipation type Benign prostatic hyperplasia, unspecified whether lower urinary tract symptoms present N40.0 Lower urinary tract symptom presence: unspecified whether lower urinary tract symptoms present Dementia without behavioral disturbance, unspecified dementia type F03.90 Dementia type: unspecified type Dementia behavioral disturbance: without behavioral disturbance COPD (chronic obstructive pulmonary disease) J44.9 Pleural effusion on left J90 Acute dyspnea R06.00
--- NOTE | 2023-09-11 13:07 | XR_ITS ---
WS: [id number] Exam: XR chest 1V portable [id number] Date/Time of Exam: 09/11/2023 1:16 PM Reason For Exam: aspiration? Comparison 09/09/2023. Large left-sided pleural effusion showing some improvement since the previous study. There is signifi cant compressive atelectasis of the LEFT lower lobe. Focal pulmonary consolidation in the upper LEFT lobe that may represent either pneumonia or a mass. Bilateral apical pleural thickening noted. Emphys ematous bleb formation in the RIGHT upper lobe. LEFT heart is obscured. Widening of the mediastinum u nchanged. Advanced DJD of both shoulders. No pneumothorax. IMPRESSION: 1. Prominent left-sided pleural effusion showing some improvement since prior study. 2. Consolidated density in the LEFT upper lobe that may represent either focal pneumonia or mass. The re is also bilateral apical pleural thickening and widening of the superior mediastinum. Recommendations: Chest CT could be helpful for more detailed evaluation.
--- NOTE | 2023-09-11 13:09 | CT_ITS ---
WS: [id number] CT CHEST TECHNIQUE: Noncontrast CT of the chest with coronal and sagittal reformatted images. CLINICAL INFORMATION: central mass? COMPARISON: None. DLP: 484.[address] scans at [facility] use at least one of these dose optimization techniques: automated e xposure control; mA and/or kV adjustment per patient size (includes targeted exams where dose is matc hed to clinical indication); or iterative reconstruction. FINDINGS: Volume loss LEFT hemithorax with small LEFT pleural effusion. LEFT upper lobe consolidative mass with air bronchograms contiguous with the LEFT upper lobe bronchus suspicious for neoplasm. Recommend fur ther evaluation with bronchoscopy. This measures approximately 5.6 x 4.1 cm. A few prominent adjacent anterior mediastinal and AP window lymph nodes. Chronic emphysematous changes with bulla formation. Aortic calcification. Coronary calcification. Adrenal glands are normal. Partially visualized calcifi ed large LEFT renal cyst measuring up to 9.3 cm. Thoracolumbar scoliosis and kyphosis. Compression of the inferior endplate of T12 is new since 2019. Mild retropulsion of the posterior inferior cortex w ith mild central canal stenosis. IMPRESSION: 1. Spiculated LEFT upper lobe mass suspicious for neoplasm. Recommend bronchoscopy in further evalua tion 2. Compression of the inferior endplate of T12 is new since 2020. No evidence of healing. Mild retro pulsion of the posterior inferior cortex with mild central canal stenosis. Recommend correlation for recent trauma and low back pain.
--- NOTE | 2023-09-11 20:18 | PC.NURSE ---
Patient pulling optifoam off due to confusion. Skin tear left open to air.
[2023-09-11] MEDS: enoxaparin 40 mg/0.4 mL Syringe SUBCUT (20:49)
[2023-09-11] MEDS: oxyCODONE 5 mg IR Tab/Cap PO (20:51)
--- NOTE | 2023-09-11 21:10 | PC.NURSE ---
Patient c/o back pain stating that the PO PRN Morphine is not helping. Oxy PO x1 ordered by Dr. Morataya.
--- NOTE | 2023-09-11 23:10 | US_ITS ---
WS: [id number] Ultrasound chest, limited. HISTORY: Evaluate LEFT chest for fluid and thoracentesis. Patient is not cooperative for this examination. There is a small LEFT pleural effusion identified. T he pleural effusion is much smaller than expected compared to the chest radiograph obtained on 024. I suspect there may be a more central mass versus atelectasis. There is also pleural thickening. No thoracentesis will be performed as the patient is not cooperative and the amount of fluid is not significant. IMPRESSION: Small LEFT pleural effusion. Patient is not cooperative for this examination. No thoracentesis will b e performed.
--- NOTE | 2023-09-11 23:29 | PC.NURSE ---
Patient c/o back pain. Patient refusing PRN pain medication.
[2023-09-12] VITALS: BP 143/77; PULSE 102; RESP 18; TEMP 36.9; O2SAT 91
[2023-09-12 04:00] VITALS: BP 111/72; PULSE 84; RESP 16; TEMP 36.4; O2SAT 90
--- NOTE | 2023-09-12 04:45 | PC.NURSE ---
Patient became angry with nursing staff when being woken up for vital signs. Lab staff notified to not draw patient's morning labs until 6 or 6:30 AM.
[2023-09-12 06:23] LABS: Basophils # 0.1 10^3/uL (0.0-0.1); Basophils % 0.6 %; Eosinophils # 0.4 10^3/uL (0.0-0.8); Eosinophils % 2.8 %; Hematocrit 35.4 % (37-53); Lymphocytes # 3.3 10^3/uL (0.8-4.8); Lymphocytes % 25.7 %; Mean Corpuscular HGB Conc 32.2 g/dL (30-55); Mean Corpuscular Hemoglobin 29.2 pg (27-33); Mean Corpuscular Volume 90.8 fl (82-101); Mean Platelet Volume 11.4 fL (7.4-10.4); Monocytes # 1.5 10^3/uL (0.2-0.9); Neutrophils % 58.4 %; Nucleated Red Blood Cells % 0 %; Platelet Count 267 10^3/cmm (157-399); Red Cell Distribution Width 14.2 % (12.1-15.1); White Blood Count 12.67 10^3/uL (3.29-11.43)
[2023-09-12 06:38] LABS: Anion Gap 11.9 (5-19); Blood Urea Nitrogen 18 mg/dL (8-23); Calcium 8.5 mg/dL (8.5-10.5); Carbon Dioxide 35 mmol/L (22-29); Chloride 95 mmol/L (98-107); Glucose 105 mg/dL (65-115); Osmolality Calculated 290 mOsm/kg (285-295); Sodium 139 mmol/L (136-145)
[2023-09-12 06:44] LABS: Potassium 2.9 mmol/L (3.5-5.1)
[2023-09-12] MEDS: lidocaine 1% 5 ML in potassium chloride premix 100 ML 52.5 ML IV ×2 (07:13→08:56)
[2023-09-12 07:53] VITALS: BP 161/81; PULSE 94; RESP 17; TEMP 36.6; O2SAT 90
[2023-09-12 08:26] VITALS: PULSE 60; RESP 16; O2SAT 93
[2023-09-12] MEDS: ciprofloxacin 0.3% Op Soln 2.5 mL Btl 1 DROP EYE-LEFT (08:54)
[2023-09-12] MEDS: sennosides-docusate Tablet 2 TAB PO (08:55)
[2023-09-12] MEDS: memantine 5 mg tablet 10 MG PO (08:55)
[2023-09-12] MEDS: donepezil 5 MG Tablet 10 MG PO (08:55)
[2023-09-12] MEDS: metoprolol succinate ER (24 HR) 100 mg Tablet PO (08:55)
[2023-09-12] MEDS: tamsulosin 0.4 mg Capsule 0.400000000000000022 MG PO (08:55)
[2023-09-12] MEDS: potassium chloride oral liq 20 mEq/15 mL UDC 40 MEQ PO (09:04)
[2023-09-12 10:42] LABS: Glucose Point of Care 121 mg/dL (70-110)
[2023-09-12 12:00] VITALS: BP 151/84; PULSE 70; RESP 15; TEMP 36.4; O2SAT 99
--- NOTE | 2023-09-12 12:13 | P.DS_ITS ---
Discharge Providers Date of Admission: 09/09/23 21:05 Date of Discharge: September 12, 2023 Attending Provider at Admission: Alex Morataya MD Attending Provider at Discharge: Karli De La O MD Primary Care Provider: Aminah Dial MD Diagnoses at Discharge Discharge Diagnosis (1) Failure to thrive: Status: Acute (2) Depression with anxiety: Status: Acute (3) Hypertension: Status: Acute Qualifiers: Hypertension type: essential hypertension Qualified Code(s): I10 - Essential (primary) hypertension (4) Congestive heart failure: Status: Acute Qualifiers: Heart failure chronicity: acute Heart failure type: unspecified Qualified Code(s): I50.9 - Heart failure, unspecified (5) Diabetes: Status: Acute (6) Adult failure to thrive: Status: Acute (7) GERD (gastroesophageal reflux disease): Status: Acute Qualifiers: Esophagitis presence: without esophagitis Qualified Code(s): K21.9 - Gastro-esophageal reflux disease without esophagitis (8) Constipation: Status: Acute Qualifiers: Constipation type: unspecified constipation type Qualified Code(s): K59.00 - Constipation, unspecified (9) BPH (benign prostatic hyperplasia): Status: Acute Qualifiers: Lower urinary tract symptom presence: unspecified whether lower urinary tract symptoms present Qualified Code(s): N40.0 - Benign prostatic hyperplasia without lower urinary tract symptoms (10) Dementia: Status: Acute Qualifiers: Dementia behavioral disturbance: without behavioral disturbance Dementia type: unspecified type Qualified Code(s): F03.90 - Unspecified dementia without behavioral disturbance (11) COPD (chronic obstructive pulmonary disease): Status: Acute (12) Pleural effusion on left: Status: Acute (13) Acute dyspnea: Status: Acute Reason for Visit Reason for Visit: LOW BACK PAIN Hospital Course Hospital Course Patient was admitted with acute diastolic CHF exacerbation and left-sided pleural effusion. He was given Lasix 40 IV during hospital stay and diuresed quite well. Lasix was transition back to oral at discharge. Thoracentesis was requested however there was not enough fluid to be drained therefore canceled. He did have stress-induced leukocytosis 13,000. Patient on thickened liquids at home. On a dysphagia diet. We will continue the same. At baseline uses 2 L nasal cannula however today is on room air. He may use 2 L as needed. He has had poor oral intake. He has been losing weight as per the family. D-dimer was elevated however after age adjustment low risk of VTE. Chest CT was also done which showed left upper lobe possible mass and for bronchoscopy recommended for further evaluation. Discussed with the family over the phone. Given patient's history of dementia and overall status family not wanting to pursue further aggressive testing or management at this time regarding lung mass. They did say even if it is malignant patient would not want chemotherapy. However we decided we will still give patient a referral to pulmonology as outpatient in case they would like to pursue a bronchoscopy which will be done as an outpatient. ? Patient also has a pressure injury on left ankle area which is stage III. We will be applying Hydrofera Blue and Optifoam. Patient does tend to remove Optifoam wherever it is applied on his body. He has been complaining of low back pain. CT chest does show compression fraction of T12 area. Fracture is new since 2019. There is very mild retropulsion with mild central canal stenosis. We will be giving patient a prescription for oxycodone at discharge which has been working well during hospital stay. Initially morphine was ordered however patient refuses to take the morphine. He did better with oxycodone. I have also recommended lidocaine patch over that area. Will recommend TLSO brace. Discussed with case management to get brace sent over to [facility]. Physical Exam Narrative: Awake alert Oriented to himself, says he is in the [facility] today. Answers simple questions Currently on 2 L Diminished breath sounds bilaterally No active wheezing Mainly clear to auscultation bilaterally no wheezes no rhonchi. No crackles appreciated. on room air Hemodynamic stable Low extremity 1+ edema Nonfocal neuroexam stage 3 pressure ulcer on left ankle Urinary Catheter Management: Leon: Cath Placed During This Visit: yes Reason for Continuing Indwelling Catheter: Other Urinary Catheter Date of Insertion: 09/09/23 Urinary Catheter Time of Insertion: 22:12 Discharge Data Studies Completed and Pending Completed Studies During Hospitalization Category Date Time Status CT chest wo con [id number] Routine Cat Scan 09/11/23 13:09 Completed XR chest 1V portable [id number] Routine Exams 09/11/23 13:07 Completed XR chest 1V portable [id number] Stat Exams 09/09/23 18:16 Completed CV. echo complete* [id number] Routine Ultrasound 09/10/23 09:30 [place] chest [id number] Routine Ultrasound 09/11/23 23:10 Completed Pending at discharge Category Date Time Status Blood Culture Stat Lab 09/09/23 19:17 Results Laboratory Results WBC 12.67 10^3/uL (3.29-11.43) H 09/12/23 06:15 RBC 3.90 10^6/uL (3.85-5.65) 09/12/23 06:15 Hgb 11.40 g/dL (11.27-16.99) 09/12/23 06:15 Hct 35.4 % (37-53) L 09/12/23 06:15 MCV 90.8 fl (82-101) 09/12/23 06:15 MCH 29.2 pg (27-33) 09/12/23 06:15 MCHC 32.2 g/dL (30-55) 09/12/23 06:15 RDW 14.2 % (12.1-15.1) 09/12/23 06:15 Plt Count 267 10^3/cmm (157-399) 09/12/23 06:15 MPV 11.4 fL (7.4-10.4) H 09/12/23 06:15 Neut % (Auto) 58.4 % 09/12/23 06:15 Lymph % (Auto) 25.7 % 09/12/23 06:15 [place] % (Auto) 12.0 % 09/12/23 06:15 Eos % (Auto) 2.8 % 09/12/23 06:15 Baso % (Auto) 0.6 % 09/12/23 06:15 Neut # (Auto) 7.40 10^3/uL (1.8-7.7) 09/12/23 06:15 Lymph # (Auto) 3.3 10^3/uL (0.8-4.8) 09/12/23 06:15 [place] # (Auto) 1.5 10^3/uL (0.2-0.9) H 09/12/23 06:15 Eos # (Auto) 0.4 10^3/uL (0.0-0.8) 09/12/23 06:15 Baso # (Auto) 0.1 10^3/uL (0.0-0.1) 09/12/23 06:15 Nucleated RBC % (auto) 0 % 09/12/23 06:15 Nucleated RBCs # 0.0 /100WBC 09/12/23 06:15 PT 15.40 SECONDS (12.1-14.9) H 09/11/23 04:45 INR 1.18 (0.8-1.2) 09/11/23 04:45 D-Dimer 3.77 ug/mLFEU (0-0.59) H 09/09/23 19:10 Specimen Type Arterial 09/09/23 18:23 Sample Site Brachial, right 09/09/23 18:23 ABG pH 7.46 (7.35-7.45) H 09/09/23 18:23 ABG pCO2 50.2 mmHg (35-45) H 09/09/23 18:23 ABG pO2 84.9 mmHg (80.0-100.0) 09/09/23 18:23 ABG PO2/FiO2 Ratio 0 09/09/23 18:23 ABG HCO3 35.3 mmol/L (22-26) H 09/09/23 18:23 ABG Base Excess 9.9 mmol/L (-2.0-2.0) H 09/09/23 18:23 Kike Test Pos 09/09/23 18:23 Hematocrit 35.3 % (42-52) L 09/09/23 18:23 Hgb O2 Saturation 96.0 % (95-100) 09/09/23 18:23 Carboxyhemoglobin 0.6 %THgb (0.4-20.1) 09/09/23 18:23 Methemoglobin 0.4 % (0.4-1.5) 09/09/23 18:23 Total Hemoglobin 11.5 g/dL (14-18) L 09/09/23 18:23 O2 Delivery Device Nc 09/09/23 18:23 O2 Liters/Min 2.0 % 09/09/23 18:23 FiO2 28.0 % 09/09/23 18:23 Early Breastfeeding Care Specialist ID [place] 09/09/23 18:23 Sodium 139 mmol/L (136-145) 09/12/23 06:15 Potassium 2.9 mmol/L (3.5-5.1) L 09/12/23 06:15 Chloride 95 mmol/L (98-107) L 09/12/23 06:15 Carbon Dioxide 35 mmol/L (22-29) H 09/12/23 06:15 Anion Gap 11.9 (5-19) 09/12/23 06:15 BUN 18 mg/dL (8-23) 09/12/23 06:15 Creatinine 1.0 mg/dL (0.7-1.2) 09/12/23 06:15 GFR Calculation Not Reportable 09/12/23 06:15 Glucose 105 mg/dL (65-115) 09/12/23 06:15 POC Glucose 121 mg/dL (70-110) H 09/12/23 10:38 Calculated Osmolality 290 mOsm/kg (285-295) 09/12/23 06:15 Lactic Acid 1.0 mmol/L (0.5-2.2) 09/09/23 19:10 Calcium 8.5 mg/dL (8.5-10.5) 09/12/23 06:15 Magnesium 1.7 mg/dL (1.7-2.3) 09/11/23 04:45 Total Bilirubin 0.4 mg/dL (0.15-1.2) 09/09/23 19:10 AST 11 U/L (0-40) 09/09/23 19:10 ALT 7 U/L (0-41) 09/09/23 19:10 Alkaline Phosphatase 71 U/L (40-130) 09/09/23 19:10 Lactate Dehydrogenase 274 U/L (135-225) H 09/10/23 02:59 Troponin T Baseline 28 ng/L (0-15) H 09/09/23 19:10 Troponin T 120 Minute 29.24 ng/L (0-15) H 09/09/23 21:29 Delta Troponin T 1.24 ABS# (0-10) 09/09/23 21:29 NT-Pro-B Natriuret Pep 3880 pg/mL (0-450) H 09/09/23 19:10 Total Protein 6.5 g/dL (6.6-8.7) L 09/09/23 19:10 Albumin 2.7 g/dL (3.5-5.2) L 09/09/23 19:10 Globulin 3.8 g/dL (1.3-4.6) 09/09/23 19:10 Vitamin B12 339 pg/mL (232-1245) 09/09/23 21:29 Procalcitonin 0.09 ng/mL (0-0.5) 09/09/23 19:10 Urine Color Yellow (Yellow) 09/09/23 20:07 Urine Appearance Hazy (CLEAR) A 09/09/23 20:07 Urine pH 5 (5-7) 09/09/23 20:07 Ur Specific [place] 1.025 (1.005-1.030) 09/09/23 20:07 Urine Protein 3+ (Negative) H 09/09/23 20:07 Urine Glucose (UA) Norm (Normal) 09/09/23 20:07 Urine Ketones Negative (Negative) 09/09/23 20:07 Urine Blood 3+ (Negative) H 09/09/23 20:07 Urine Nitrate Negative (Negative) 09/09/23 20:07 Urine Bilirubin Neg (Negative) 09/09/23 20:07 Urine Urobilinogen Neg mg/dL (Negative) 09/09/23 20:07 Ur Leukocyte Esterase Negative (Negative) 09/09/23 20:07 Urine RBC 5-10 /hpf (0-2) H 09/09/23 20:07 Urine WBC 5-10 /hpf (0-5) H 09/09/23 20:07 Ur Squamous Epith Cells 0-4 /hpf (0-5) H 09/09/23 20:07 Amorphous Sediment 1+ /hpf 09/09/23 20:07 Urine Bacteria 2+ /hpf (NONE) H 09/09/23 20:07 Hyaline Casts 5-10 /lpf H 09/09/23 20:07 Urine Mucus 1+ /hpf 09/09/23 20:07 Urine Yeast Trace /hpf 09/09/23 20:07 Vitals Last Vital Signs Temp 97.6 F 09/12/23 12:00 Pulse 70 09/12/23 12:00 Resp 15 09/12/23 12:00 BP 151/84 09/12/23 12:00 Pulse Ox 99 09/12/23 12:00 O2 Del Method Room Air 09/12/23 08:26 O2 Flow Rate 1 09/10/23 19:50 Discharge Plan Discharge Patient Disposition: Xfer SNF Condition: Stable Prescriptions: New oxycodone-acetaminophen 5-325 mg tablet 1 tab PO BID PRN (Reason: pain) 5 Days Qty: 10 0RF Continued (DME) blood-glucose meter Misc See Rx Instructions .Route Qty: 1 0RF Rx Instructions: daily (DME) blood sugar diagnostic Strip See Rx Instructions .Route Qty: 30 3RF Rx Instructions: check blood sugar one time daily (DME) lancets 32 gauge misc See Rx Instructions .Route Qty: 100 1RF Rx Instructions: check blood sugar one time daily memantine 10 mg tablet 10 mg PO QAM Qty: 30 3RF metoprolol succinate 100 mg tablet extended release 24 hr 100 mg PO DAILY Qty: 30 3RF metformin 500 mg tablet extended release 24 hr 500 mg PO DAILY Qty: 30 3RF donepezil 10 mg tablet 10 mg PO DAILY Qty: 30 3RF lovastatin 40 mg tablet 40 mg PO DAILY famotidine 20 mg tablet 20 mg PO BID tamsulosin 0.4 mg capsule 0.4 mg PO DAILY mirtazapine 30 mg tablet 30 mg PO BEDTIME furosemide 20 mg tablet 20 mg PO DAILY albuterol sulfate 90 mcg/actuation Hfa Aerosol Inhaler 2 puff INHALATION QID PRN (Reason: Shortness Of Breath) duloxetine 60 mg capsule,delayed release(DR/EC) 60 mg PO DAILY Nitrostat 0.4 mg Tablet, Sublingual 0.4 mg SUBLINGUAL Q5M PRN (Reason: Chest Pain) Rx Instructions: do not exceed 3 doses per episode tobramycin-dexamethasone 0.3-0.1 % drops,suspension See Rx Instructions .ROUTE .COMPLEX Rx Instructions: instill one drop in eye(s) THREE TIMES DAILY FOR 7 DAYS DIRECTED Discontinued diclofenac sodium 75 mg tablet,delayed release (DR/EC) 75 mg PO BID Discharge Orders: Discharge Order (Routine); Ordered 09/12/23 Ordered By: Karli De La O Referrals: Aminah Dial MD [Primary Care Provider] - 4-7 days Kurt Cohen MD [Physician] - 4-7 days Discharge Diet: As Directed Discharge Activity: Limit activity as instructed Patient Instructions: Oxycodone/Acetaminophen (By mouth), Failure to Thrive (GEN) Activity Restrictions/Additional Instructions: Dysphagia level 5 diet. Thickened liquids. Discharge Attestations Time Spent in Discharge Care*: greater than 30 min Quality Metrics Clinical Quality Measures [ No reported AMI, CVA or VTE this stay] Coding Level of Care Code 26297 Total time (in minutes) for Discharge: 40 Diagnoses Failure to thrive Depression with anxiety F41.8 Essential hypertension I10 Hypertension type: essential hypertension Congestive heart failure I50.9 Heart failure chronicity: acute Heart failure type: unspecified Diabetes E11.9 Adult failure to thrive R62.7 Gastroesophageal reflux disease without esophagitis K21.9 Esophagitis presence: without esophagitis Constipation K59.00 Constipation type: unspecified constipation type Benign prostatic hyperplasia, unspecified whether lower urinary tract symptoms present N40.0 Lower urinary tract symptom presence: unspecified whether lower urinary tract symptoms present Dementia without behavioral disturbance, unspecified dementia type F03.90 Dementia behavioral disturbance: without behavioral disturbance Dementia type: unspecified type COPD (chronic obstructive pulmonary disease) J44.9 Pleural effusion on left J90 Acute dyspnea R06.00
--- NOTE | 2023-09-12 12:51 | PC.NURSE ---
REPORT CALLED TO MAX GRIFFIN.
[2023-09-12 13:39] VITALS: BP 151/84; PULSE 70; RESP 15; TEMP 36.4; O2SAT 99
== END 2023-09-12 13:40 | disposition skilled nursing facility (03) | DRG 291 ==
LOC: ER 21:11 → MEDSURG 21:20
PROVIDERS: Admitting Provider Internal Medicine; Emergency Provider Internal Medicine; PCP Family Medicine; Visit Provider Internal Medicine
DX: I11.0 Hypertensive heart disease with heart failure (principal); I50.33 Acute on chronic diastolic (congestive) heart failure; L89.523 Pressure ulcer of left ankle, stage 3; S22.088A Other fracture of T11-T12 vertebra, initial encounter for closed fracture; R06.00 Dyspnea, unspecified; R62.7 Adult failure to thrive; N40.0 Benign prostatic hyperplasia without lower urinary tract symptoms; E11.9 Type 2 diabetes mellitus without complications; K59.00 Constipation, unspecified; F03.90 Unspecified dementia, unspecified severity, without behavioral disturbance, psychotic disturbance, mood disturbance, and anxiety; Z99.81 Dependence on supplemental oxygen; M17.9 Osteoarthritis of knee, unspecified; H91.90 Unspecified hearing loss, unspecified ear; H01.009 Unspecified blepharitis unspecified eye, unspecified eyelid; M48.062 Spinal stenosis, lumbar region with neurogenic claudication; M51.17 Intervertebral disc disorders with radiculopathy, lumbosacral region; E78.5 Hyperlipidemia, unspecified; K21.9 Gastro-esophageal reflux disease without esophagitis; F41.8 Other specified anxiety disorders; J44.9 Chronic obstructive pulmonary disease, unspecified; F10.90 Alcohol use, unspecified, uncomplicated; I25.10 Atherosclerotic heart disease of native coronary artery without angina pectoris; R09.02 Hypoxemia; Z66 Do not resuscitate; R91.8 Other nonspecific abnormal finding of lung field; X58.XXXA Exposure to other specified factors, initial encounter; Z87.891 Personal history of nicotine dependence; Z79.84 Long term (current) use of oral hypoglycemic drugs; Z68.22 Body mass index [BMI] 22.0-22.9, adult
CPT/HCPCS: 36415; 36416; 36600; 51702; 71045; 71250; 76604; 80048; 80053; 81001; 82607; 82805; 82962; 83605; 83615; 83735; 83880; 84145; 84484; 85025; 85378; 85610; 87040; 87086; 93005; 93306; 96372; 99285; J1650; J1940; J3480; L0460